=== PATIENT | male | born 1955 | race Caucasian/White ===

== ENCOUNTER 2019-06-30 20:00 | Inpatient (IN) | payer MEDICARE ==
[~2019-06-30] VITALS: Ht 190.5 cm; Wt 121.6 kg
[2019-06-30] MEDS ORDERED: DEPAKOTE ER250 MG ORAL (20:21)
[2019-06-30] MEDS ORDERED: LIPITOR40 MG ORAL (20:21)
[2019-06-30] MEDS ORDERED: ACETAMINOPHEN325 M1 ORAL (20:21)
[2019-06-30] MEDS ORDERED: HALOPERIDOL2 MG/1 ML PO (20:21)
[2019-06-30] MEDS ORDERED: DEPAKOTE500 MG PO (20:21)
[2019-06-30] MEDS ORDERED: PROTONIX20 MG ORAL (20:21)
[2019-06-30] MEDS ORDERED: FUROSEMIDE40 MG ORAL (20:23)
[2019-06-30] MEDS ORDERED: LISINOPRIL20 MG ORAL (20:23)
[2019-06-30] MEDS ORDERED: PRO-STAT LIQUID30 ML ORAL (20:23)
[2019-06-30] MEDS ORDERED: BENZTROPINE ME0.5 MG PO (20:23)
[2019-06-30] MEDS ORDERED: PLAVIX75 MG ORAL (20:23)
[2019-06-30] MEDS ORDERED: DOCUSATE SODIU100 M2 ORAL (20:23)
[2019-06-30 20:30] VITALS: BP 152/98
[2019-06-30 20:37] LABS: EOSINOPHILS % (AUTO) 0.1 % (0.0-3.0); HEMATOCRIT 42.9 % (42.0-52.0); HEMOGLOBIN 14.7 G/DL (14.2-18.0); LYMPHOCYTES % (AUTO) 24.3 % (20.0-45.0); MEAN CORPUSCULAR VOLUME 88 FL (80-99); MONOCYTES % (AUTO) 9.1 % (1.0-10.0); NEUTROPHILS % (AUTO) 64.5 % (45.0-75.0); PLATELET COUNT 158 K/UL (150-450); RED BLOOD COUNT 4.87 M/UL (4.70-6.10); RED CELL DISTRIBUTION WIDTH 12.8 % (11.6-14.8); WHITE BLOOD COUNT 6.4 K/UL (4.8-10.8)
--- NOTE | 2019-06-30 20:42 | Emergency Room Report ---
History of Present Illness General Chief Complaint: General Complaint Source: Patient, Medical Record Present Illness HPI Patient presents from nursing facility with reports of increased weight loss Ongoing for the past several weeks patient himself reports that he has been eating less Has decreased appetite Denies any chest pain or shortness of breath denies any back or flank pain Patient appears morbidly obese And is chronically debilitated Denies any neck pain or photophobia denies any recent trauma Allergies: Coded Allergies: ASPIRIN (Verified Allergy, Unknown, 06/30/19) Patient History Past Medical History: see triage record Reviewed Nursing Documentation: PMH: Agreed; PSxH: Agreed Nursing Documentation-PMH Hx Hypertension: Yes - CELLULITIS RLE, LUE Hx COPD: Yes Hx Seizures: Yes Review of Systems All Other Systems: negative except mentioned in HPI Physical Exam Vital Signs Date Time Temp Pulse Resp B/P (MAP) Pulse Ox O2 Delivery O2 Flow Rate FiO2 06/30/19 20:03 97.3 76 18 152/98 (116) 92 Room Air Sp02 EP Interpretation: reviewed, normal General Appearance: no apparent distress Head: normocephalic, atraumatic Eyes: bilateral eye PERRL, bilateral eye EOMI ENT: dry mucus membranes Neck: supple, thyroid normal Respiratory: lungs clear, no retraction, no accessory muscle use Cardiovascular #1: regular rate, rhythm Gastrointestinal: non tender, soft Musculoskeletal: other - Patient chronically debilitated however able to have equal deputy k 9 bilaterally on the upper extremities Neurologic: alert, oriented x3 Skin: no rash Lymphatic: no adenopathy Medical Decision Making Diagnostic Impression: Primary Impression: Dehydration Additional Impression: Weight loss ER Course Given the patient's history and presentation multiple differentials are in consideration including but not limited to carcinoma, dehydration, obstruction Patient's CT imaging does reveal multiple abnormal findings X-ray shows nonspecific findings EKG is appropriate patient is further hydrated and admitted for further care Labs Test 06/30/19 20:20 06/30/19 22:15 07/01/19 07:25 07/01/19 09:50 White Blood Count 6.4 K/UL (4.8-10.8) 6.5 K/UL (4.8-10.8) Red Blood Count 4.87 M/UL (4.70-6.10) 4.51 M/UL (4.70-6.10) Hemoglobin 14.7 G/DL (14.2-18.0) 13.6 G/DL (14.2-18.0) Hematocrit 42.9 % (42.0-52.0) 41.3 % (42.0-52.0) Mean Corpuscular Volume 88 FL (80-99) 92 FL (80-99) Mean Corpuscular Hemoglobin 30.2 PG (27.0-31.0) 30.2 PG (27.0-31.0) Mean Corpuscular Hemoglobin Concent 34.3 G/DL (32.0-36.0) 32.9 G/DL (32.0-36.0) Red Cell Distribution Width 12.8 % (11.6-14.8) 14.3 % (11.6-14.8) Platelet Count 158 K/UL (150-450) 148 K/UL (150-450) Mean Platelet Volume 7.4 FL (6.5-10.1) 8.3 FL (6.5-10.1) Neutrophils (%) (Auto) 64.5 % (45.0-75.0) 62.7 % (45.0-75.0) Lymphocytes (%) (Auto) 24.3 % (20.0-45.0) 21.2 % (20.0-45.0) Monocytes (%) (Auto) 9.1 % (1.0-10.0) 13.7 % (1.0-10.0) Eosinophils (%) (Auto) 0.1 % (0.0-3.0) 1.4 % (0.0-3.0) Basophils (%) (Auto) 2.0 % (0.0-2.0) 1.1 % (0.0-2.0) Sodium Level 141 MMOL/L (136-145) 140 MMOL/L (136-145) Potassium Level 4.7 MMOL/L (3.5-5.1) 3.9 MMOL/L (3.5-5.1) Chloride Level 104 MMOL/L (98-107) 105 MMOL/L (98-107) Carbon Dioxide Level 35 MMOL/L (21-32) 33 MMOL/L (21-32) Anion Gap 2 mmol/L (5-15) 2 mmol/L (5-15) Blood Urea Nitrogen 17 mg/dL (7-18) 16 mg/dL (7-18) Creatinine 0.8 MG/DL (0.55-1.30) 0.7 MG/DL (0.55-1.30) Estimat Glomerular Filtration Rate > 60 mL/min (>60) > 60 mL/min (>60) Glucose Level 88 MG/DL (74-106) 84 MG/DL (74-106) Calcium Level 8.8 MG/DL (8.5-10.1) 8.7 MG/DL (8.5-10.1) Total Bilirubin 0.5 MG/DL (0.2-1.0) 0.5 MG/DL (0.2-1.0) Aspartate Amino Transf (AST/SGOT) 31 U/L (15-37) 29 U/L (15-37) Alanine Aminotransferase (ALT/SGPT) 28 U/L (12-78) 27 U/L (12-78) Alkaline Phosphatase 63 U/L (46-116) 52 U/L (46-116) Total Creatine Kinase 18 U/L (26-308) Creatine Kinase MB 0.5 NG/ML (0.0-3.6) Creatine Kinase MB Relative Index 2.7 Troponin I 0.008 ng/mL (0.000-0.056) Pro-B-Type Natriuretic Peptide 327 pg/mL (0-125) Total Protein 8.4 G/DL (6.4-8.2) 7.6 G/DL (6.4-8.2) Albumin 2.7 G/DL (3.4-5.0) 2.4 G/DL (3.4-5.0) Globulin 5.7 g/dL 5.2 g/dL Albumin/Globulin Ratio 0.5 (1.0-2.7) 0.5 (1.0-2.7) Lipase 58 U/L (73-393) Urine Color Mar Urine Appearance Clear Urine pH 5 (4.5-8.0) Urine Specific [place] 1.020 (1.005-1.035) Urine Protein Negative (NEGATIVE) Urine Glucose (UA) Negative (NEGATIVE) Urine Ketones Negative (NEGATIVE) Urine Blood Negative (NEGATIVE) Urine Nitrite Negative (NEGATIVE) Urine Bilirubin Negative (NEGATIVE) Urine Ictotest Negative (NEGATIVE) Urine Urobilinogen 4 MG/DL (0.0-1.0) Urine Leukocyte Esterase Negative (NEGATIVE) HIV (1&2) Antibody Rapid Negative (NEGATIVE) EKG Diagnostic Results Rate: normal Rhythm: NSR ST Segments: no acute changes Rhythm Strip Diag. Results EP Interpretation: yes Rate: 88 Rhythm: NSR, no PVC's, no ectopy Chest X-Ray Diagnostic Results Chest X-Ray Diagnostic Results : Chest X-Ray Ordered: Yes # of Views/Limited/Complete: 1 View Indication: Chest Pain EP Interpretation: Yes Interpretation: no consolidation, no effusion, no pneumothorax Impression: No acute disease - Catheters visualized from both neck region Electronically Signed by: Marifer Lyons DO CT/MRI/US Diagnostic Results CT/MRI/US Diagnostic Results : Impression CT abdomen pelvisIMPRESSION: Limited exam without intravenous and oral contrast. Significant streak artifact from left hip prosthesis also limits evaluation through the pelvis. Subtle abnormalities in these regions can be missed. Within these limitations: * Bibasilar airspace opacities which may be related to atelectasis however correlation with clinical findings is recommended to exclude the possibility of consolidation or aspiration. * Prominent colonic stool burden suggesting constipation. * Chilaiditi sign. * Atypical hepatic morphology which may suggest early cirrhotic changes. Correlation with liver function tests and clinical history recommended. No discrete hepatic mass lesion identified however sensitivity is limited on noncontrast exam. Consider follow-up multiphase contrast-enhanced MRI or CT of the liver as clinically indicated. * Extensive superficial venous collaterals in the abdominal wall which may suggest SVC occlusion or stenosis. Correlate clinically. Additional findings as above. This report corresponds with the preliminary report. Last Vital Signs Date Time Temp Pulse Resp B/P (MAP) Pulse Ox O2 Delivery O2 Flow Rate FiO2 06/30/19 20:03 97.3 76 18 152/98 (116) 92 Room Air Status: improved Disposition: ADMITTED INPATIENT Condition: Serious Marifer Lyons DO Jun 30, 2019 20:42
[2019-06-30 20:58] LABS: ANION GAP 2 mmol/L (5-15); BLOOD UREA NITROGEN 17 mg/dL (7-18); CALCIUM 8.8 MG/DL (8.5-10.1); CARBON DIOXIDE 35 MMOL/L (21-32); CHLORIDE 104 MMOL/L (98-107); CREATININE 0.8 MG/DL (0.55-1.30); POTASSIUM 4.7 MMOL/L (3.5-5.1); SODIUM 141 MMOL/L (136-145)
[2019-06-30 21:19] LABS: ALANINE AMINOTRANSFERASE 28 U/L (12-78); ALBUMIN 2.7 G/DL (3.4-5.0); ALBUMIN/GLOBULIN RATIO 0.5 (1.0-2.7); ALKALINE PHOSPHATASE 63 U/L (46-116); ASPARTATE AMINO TRANSFERASE 31 U/L (15-37); BILIRUBIN,TOTAL 0.5 MG/DL (0.2-1.0); CKMB 0.5 NG/ML (0.0-3.6); CREATINE KINASE 18 U/L (26-308)
--- NOTE | 2019-06-30 21:25 | Diagnostic Imaging Report ---
Indication: Abdominal pain, weight loss Technique: Noncontrast CT of the abdomen and pelvis utilizing automated exposure control. Axial, sagittal and coronal reformats presented. CT dose: Total DLP 2589.5 mGycm; CTDI vol 38.7 mGy Comparison: None Findings: Please note that evaluation of the abdominal and pelvic viscera and vascular structures is limited without the use of intravenous and oral contrast. Within these limitations the following observations are made: Dependent bibasilar atelectasis is noted. Correlate clinically to exclude consolidation or aspiration. There is a subpleural pulmonary blebs in the left base. Partially imaged heart appears normal in size. Coronary arterial calcifications partially visualized. No pericardial effusion. There is elevation of the right hemidiaphragm. There is atypical morphology of the liver with possible early cirrhotic changes. There is hypertrophy of the caudate. No discrete mass lesion is appreciated however more sensitive evaluation with multiphase CT or MRI is recommended. The gallbladder is contracted. There are no CT evident gallstones or pericholecystic inflammatory changes. No appreciable biliary ductal dilatation. Noncontrast evaluation of the spleen, adrenal glands unremarkable. There is mild fatty atrophy of the pancreas. This may be related to age however correlate for history of diabetes recommended. No peripancreatic inflammatory changes or fluid collections. No urinary tract stone, hydronephrosis or perinephric stranding. Bladder is grossly unremarkable. Note that there is suboptimal evaluation of the inferior aspect of the bladder and prostate due to significant streak artifact from left hip prosthesis. Subtle pathology in these regions not excluded. No free intraperitoneal air or fluid. There is no evidence of small bowel obstruction. Prominent colonic stool burden and anterior position of portions of the transverse colon anterior to the liver (Chilaiditi sign). There is diastases of the rectus muscles with mild anterior bulging of intra-abdominal fat. The diastases. There is evidence of prior midline abdominal surgery raising question for prior ventral hernia repair. No subcutaneous fluid collection or abscess. There are extensive facial venous collaterals subcutaneous tissues of the abdominal wall and lower chest. This raises question for central venous occlusion or stenosis. There is multilevel discogenic degenerative changes of the spine and generalized osteopenia. No acute fracture is appreciated. Abdominal aorta is normal in caliber with overall mild atherosclerotic calcifications. IMPRESSION: Limited exam without intravenous and oral contrast. Significant streak artifact from left hip prosthesis also limits evaluation through the pelvis. Subtle abnormalities in these regions can be missed. Within these limitations: * Bibasilar airspace opacities which may be related to atelectasis however correlation with clinical findings is recommended to exclude the possibility of consolidation or aspiration. * Prominent colonic stool burden suggesting constipation. * Chilaiditi sign. * Atypical hepatic morphology which may suggest early cirrhotic changes. Correlation with liver function tests and clinical history recommended. No discrete hepatic mass lesion identified however sensitivity is limited on noncontrast exam. Consider follow-up multiphase contrast-enhanced MRI or CT of the liver as clinically indicated. * Extensive superficial venous collaterals in the abdominal wall which may suggest SVC occlusion or stenosis. Correlate clinically. Additional findings as above. This report corresponds with the preliminary report. The CT scanner at [facility] is accredited by the [employer] and the scans are performed using protocols designed to limit radiation exposure to as low as reasonably achievable to attain images of sufficient resolution adequate for diagnostic evaluation.
[2019-06-30 21:59] VITALS: BP 100/54
[2019-06-30 22:49] LABS: APPEARANCE,URINE CLEAR; BILIRUBIN, URINE NEGATIVE (NEGATIVE); COLOR,URINE AMBER; GLUCOSE, URINE (UA) NEGATIVE (NEGATIVE); KETONES,URINE NEGATIVE (NEGATIVE); LEUKOCYTE ESTERASE ,URINE NEGATIVE (NEGATIVE); NITRITE,URINE NEGATIVE (NEGATIVE); PH,URINE 5 (4.5-8.0); PROTEIN,URINE NEGATIVE (NEGATIVE); UROBILINOGEN,URINE 4 MG/DL (0.0-1.0)
[2019-06-30 22:50] VITALS: BP 106/58
[2019-07-01] VITALS: BP 99/57
[2019-07-01] MEDS ORDERED: Docusate 100mg cap ORAL PRN (00:45)
[2019-07-01 04:00] VITALS: BP 94/59
[2019-07-01] MEDS ORDERED: DEPAKOTE250 MG PO (05:17)
[2019-07-01 07:59] LABS: BASOPHILS % (AUTO) 1.1 % (0.0-2.0); EOSINOPHILS % (AUTO) 1.4 % (0.0-3.0); HEMATOCRIT 41.3 % (42.0-52.0); HEMOGLOBIN 13.6 G/DL (14.2-18.0); LYMPHOCYTES % (AUTO) 21.2 % (20.0-45.0); MEAN CORPUSCULAR VOLUME 92 FL (80-99); MONOCYTES % (AUTO) 13.7 % (1.0-10.0); NEUTROPHILS % (AUTO) 62.7 % (45.0-75.0); PLATELET COUNT 148 K/UL (150-450); RED BLOOD COUNT 4.51 M/UL (4.70-6.10); RED CELL DISTRIBUTION WIDTH 14.3 % (11.6-14.8); WHITE BLOOD COUNT 6.5 K/UL (4.8-10.8)
[2019-07-01 08:00] VITALS: BP 98/67
[2019-07-01 08:36] LABS: ALANINE AMINOTRANSFERASE 27 U/L (12-78); ALBUMIN 2.4 G/DL (3.4-5.0); ALBUMIN/GLOBULIN RATIO 0.5 (1.0-2.7); ALKALINE PHOSPHATASE 52 U/L (46-116); ANION GAP 2 mmol/L (5-15); ASPARTATE AMINO TRANSFERASE 29 U/L (15-37); BILIRUBIN,TOTAL 0.5 MG/DL (0.2-1.0); BLOOD UREA NITROGEN 16 mg/dL (7-18); CALCIUM 8.7 MG/DL (8.5-10.1); CARBON DIOXIDE 33 MMOL/L (21-32); CHLORIDE 105 MMOL/L (98-107); CREATININE 0.7 MG/DL (0.55-1.30); POTASSIUM 3.9 MMOL/L (3.5-5.1); SODIUM 140 MMOL/L (136-145)
[2019-07-01] MEDS: Lisinopril 20mg tab ORAL SCH (09:00)
[2019-07-01] MEDS: Benztropine 1mg tab ORAL SCH ×3 (09:25→17:09)
[2019-07-01] MEDS: Haloperidol 1mg tab ORAL SCH ×3 (09:26→17:10)
[2019-07-01] MEDS: Depakote 500mg tab ORAL SCH ×2 (09:26→17:10)
[2019-07-01] MEDS: Furosemide 40mg tab ORAL SCH (09:27)
--- NOTE | 2019-07-01 11:28 | Diagnostic Imaging Report ---
Indication: Chest pain Technique: XRAY Chest 1v Comparison: None Findings: Patient is rotated to the left. There is slight prominence of the upper mediastinal shadow although the mediastinal contours are sharp. This may potentially be artifactual. If there is concern for acute thoracic or mediastinal pathology consider further evaluation with CT of the chest with contrast. There are 2 catheters projecting over the bilateral lower neck and terminating in the region of the upper chest. These may potentially represent ventricular shunt catheters, possibly intra-articular pleural shunt or shunt into the venous system correlation with surgical history is recommended. There I patchy bibasilar airspace opacities which may related to subsegmental atelectasis. There is elevation of the right hemidiaphragm. There is a 7 mm nodular density in the right upper lung. No evidence of pneumothorax. A left humeral prosthesis is noted. There is scoliosis and degenerative changes of the spine. IMPRESSION: * Catheter tubing projects over the bilateral lower neck, terminating in the upper chest. These may be related to ventricular shunts, possibly ventriculopleural or ventriculovenous shunt. Correlation with surgical history recommended. * Slight prominence of the upper mediastinum with sharp borders which is may be related to artifact due to patient rotation. Repeat exam with improved patient positioning can be made. Further evaluation with CT of the chest with contrast can be pursued as clinically indicated. * Aeration of the right hemidiaphragm and patchy bibasilar airspace opacities which may be related to subsegmental atelectasis versus developing infectious infiltrate. * 7 mm nodule in the right upper lung. Salient findings discussed the patient's treating nurse on 4 E, to be conveyed to the primary physician
[2019-07-01 12:00] VITALS: BP 127/78
--- NOTE | 2019-07-01 12:39 | Cardiology Report ---
APPROVED REPORT EKG Measurement Heart [id number] Normal sinus rhythm Right bundle branch block Abnormal ECG
[2019-07-01 16:00] VITALS: BP 131/76
[2019-07-01 20:00] VITALS: BP 129/63
[2019-07-01] MEDS: Atorvastatin 20mg tab ORAL SCH (20:52)
[2019-07-02 00:35] VITALS: BP 107/69
--- NOTE | 2019-07-02 02:45 | History and Physical Report ---
DATE OF ADMISSION: 06/30/2019 HISTORY OF PRESENT ILLNESS: The patient admitted for dehydration, 36-pound weight loss in the past couple of months in the residential, and is admitted for weight loss workup as well and admitted for weakness and dehydration as well. The patient denies nausea, vomiting, or diarrhea. Denies fever or chills. Denies shortness of breath. Denies cough. Denies chills. Denies fever. However, the patient is a relatively poor historian, cannot rely upon his history. PAST MEDICAL HISTORY: Organic brain syndrome, head trauma, hyperlipidemia, mood disorder, constipation, psychosis, gastroesophageal reflux disease, hernia. PAST SURGICAL HISTORY: Hernia repair. SOCIAL HISTORY: History of smoking. Denies history of alcohol or illicit drugs. Comes from a residential. ALLERGIES: To aspirin. MEDICATIONS: Lipitor, Cogentin, Plavix, Depakote, Colace, Lasix, , lisinopril, Protonix. REVIEW OF SYSTEMS: HEENT: Denies headaches. RESPIRATORY: Denies shortness of breath. Denies cough. CARDIOVASCULAR: Denies chest pain. GI: Denies nausea, vomiting, or diarrhea. EXTREMITIES: Denies pain. Does have weakness. CENTRAL NERVOUS SYSTEM: Denies change in vision or speech pattern. Feels very weak. PHYSICAL EXAMINATION: VITAL SIGNS: Temperature is 98, pulse is 80, blood pressure 98/67. HEENT: PERRLA. NECK: Supple. No lymphadenopathy. CHEST: Clear to auscultation. CARDIOVASCULAR: Regular rate and rhythm. No murmurs or extra sounds. GASTROINTESTINAL: Soft, nondistended, nontender. Positive bowel sounds. EXTREMITIES: 1+ edema. Reflexes on both sides. Moves the extremities. Sensory intact to light touch. LABORATORY DATA: WBC of 6.4, hemoglobin 14.7, and platelets 158. Sodium 141, potassium 4.7, BUN of 17, creatinine , and glucose of 88. ASSESSMENT AND PLAN: Weight loss workup, also dehydration and weakness. I have asked Dr. Gordillo, Dr. Cody Mcneil, and Dr. Alarcon to see the patient to rule out depression as well as for weight loss workup as well as for dehydration treatment. Marifer Rodriguez M.D. DR: GUILHERME JOB#: [id number] CC:
[2019-07-02 04:00] VITALS: BP 132/70
--- NOTE | 2019-07-02 06:27 | Consultation ---
History of Present Illness General Chief Complaint: General Complaint Present Illness Allergies: Coded Allergies: ASPIRIN (Verified Allergy, Unknown, 06/30/19) Medication History Scheduled Amino Acids/Protein Hydrolys (Pro-Stat Liquid), 30 ML ORAL TWICE A DAY, ( Reported) Atorvastatin Calcium* (Lipitor*), 40 MG ORAL BEDTIME, (Reported) Benztropine Mesylate* (Cogentin*), 1 MG PO TID, (Reported) Clopidogrel Bisulfate* (Plavix*), 75 MG ORAL DAILY, (Reported) Divalproex Sodium (Depakote), 500 MG PO BID, (Reported) Divalproex Sodium* (Depakote*), 250 MG PO DAILY, (Reported) Docusate Sodium (Docusate Sodium), 100 MG ORAL TWICE A DAY, (Reported) Furosemide* (Lasix*), 40 MG ORAL DAILY, (Reported) Haloperidol Lactate (Haloperidol Lactate), 2 MG PO TID, (Reported) Lisinopril (Lisinopril*), 20 MG ORAL DAILY, (Reported) Pantoprazole Sodium (Protonix), 40 MG ORAL DAILY, (Reported) Scheduled PRN Acetaminophen* (Acetaminophen 325MG Tablet*), 650 MG ORAL Q4H PRN for For Pain, (Reported) Patient History Healthcare decision maker Resuscitation status Full Code Advanced Directive on File Physical Exam Last 24 Hour Vital Signs Date Time Temp Pulse Resp B/P (MAP) Pulse Ox O2 Delivery O2 Flow Rate FiO2 07/02/19 04:00 98.0 76 20 132/70 (90) 93 07/02/19 00:35 97.5 69 18 107/69 (82) 90 07/01/19 20:22 Room Air 07/01/19 20:00 97.8 18 129/63 (85) 94 07/01/19 16:00 98.0 66 18 131/76 (94) 93 07/01/19 12:00 97.2 68 20 127/78 (94) 97 07/01/19 09:00 98/67 07/01/19 09:00 Room Air 07/01/19 08:00 98.0 80 19 98/67 (77) 98 Intake and Output 07/01/19 07/02/19 19:00 07:00 Intake Total 860 ml 860 ml Balance 860 ml 860 ml Intake Oral 860 ml 860 ml # Voids 8 2 Laboratory Tests Test 07/01/19 07:25 07/01/19 09:50 White Blood Count 6.5 K/UL (4.8-10.8) Red Blood Count 4.51 M/UL (4.70-6.10) L Hemoglobin 13.6 G/DL (14.2-18.0) L Hematocrit 41.3 % (42.0-52.0) L Mean Corpuscular Volume 92 FL (80-99) Mean Corpuscular Hemoglobin 30.2 PG (27.0-31.0) Mean Corpuscular Hemoglobin Concent 32.9 G/DL (32.0-36.0) Red Cell Distribution Width 14.3 % (11.6-14.8) Platelet Count 148 K/UL (150-450) L Mean Platelet Volume 8.3 FL (6.5-10.1) Neutrophils (%) (Auto) 62.7 % (45.0-75.0) Lymphocytes (%) (Auto) 21.2 % (20.0-45.0) Monocytes (%) (Auto) 13.7 % (1.0-10.0) H Eosinophils (%) (Auto) 1.4 % (0.0-3.0) Basophils (%) (Auto) 1.1 % (0.0-2.0) Sodium Level 140 MMOL/L (136-145) Potassium Level 3.9 MMOL/L (3.5-5.1) Chloride Level 105 MMOL/L (98-107) Carbon Dioxide Level 33 MMOL/L (21-32) H Anion Gap 2 mmol/L (5-15) L Blood Urea Nitrogen 16 mg/dL (7-18) Creatinine 0.7 MG/DL (0.55-1.30) Estimat Glomerular Filtration Rate > 60 mL/min (>60) Glucose Level 84 MG/DL (74-106) Calcium Level 8.7 MG/DL (8.5-10.1) Total Bilirubin 0.5 MG/DL (0.2-1.0) Aspartate Amino Transf (AST/SGOT) 29 U/L (15-37) Alanine Aminotransferase (ALT/SGPT) 27 U/L (12-78) Alkaline Phosphatase 52 U/L (46-116) Total Protein 7.6 G/DL (6.4-8.2) Albumin 2.4 G/DL (3.4-5.0) L Globulin 5.2 g/dL Albumin/Globulin Ratio 0.5 (1.0-2.7) L HIV (1&2) Antibody Rapid Negative (NEGATIVE) Carcinoembryonic Antigen Pending CA 19-9 Antigen Pending Hepatitis A IgM Antibody Negative (Negative) Hepatitis B Surface Antigen Negative (Negative) Hepatitis B Core IgM Antibody Negative (Negative) Hepatitis C Antibody >11.0 s/co ratio Height (Feet): 6 Height (Inches): 3.00 Weight (Pounds): 268 Medications Current Medications Medications (Trade) Dose Ordered Sig/Deb Route PRN Reason Start Time Stop Time Status Last Admin Dose Admin Acetaminophen (Tylenol) 650 mg Q4H PRN ORAL Mild Pain/Temp > 100.5 07/01/19 00:45 07/31/19 00:44 Atorvastatin Calcium (Lipitor) 40 mg BEDTIME ORAL 07/01/19 21:00 07/31/19 20:59 07/01/19 20:52 Benztropine Mesylate (Cogentin) 1 mg TID ORAL 07/01/19 09:00 07/31/19 08:59 07/01/19 17:09 Clopidogrel Bisulfate (Plavix) 75 mg DAILY ORAL 07/01/19 09:00 07/31/19 08:59 07/01/19 09:26 Divalproex Sodium (Depakote) 250 mg DAILY@1300 ORAL 07/01/19 13:00 07/31/19 12:59 07/01/19 13:20 Divalproex Sodium (Depakote) 500 mg BID ORAL 07/01/19 09:00 07/31/19 08:59 07/01/19 17:10 Docusate Sodium (Colace) 100 mg TWICE A DAY PRN ORAL Constipation 07/01/19 00:45 07/31/19 00:44 Furosemide (Lasix) 40 mg DAILY ORAL 07/01/19 09:00 07/31/19 08:59 07/01/19 09:27 Haloperidol (Haldol) 2 mg TID ORAL 07/01/19 09:00 07/31/19 08:59 07/01/19 17:10 Lisinopril (Prinivil) 20 mg DAILY ORAL 07/01/19 09:00 07/31/19 08:59 Pantoprazole (Protonix) 40 mg DAILY@0630 ORAL 07/01/19 06:30 07/31/19 06:29 07/02/19 05:23 Assessment/Plan Assessment/Plan: Hematology Consultation Source: Patient, Medical Record RFC: Rapid weight loss, FTT, low platelets DOS: 07/02/19 ID [id number] old male with copd, siezures, htn, presents from nursing facility with reports of increased weight loss. Ongoing for the past several weeks patient himself reports that he has been eating less, Has decreased appetite, Denies any chest pain or shortness of breath denies any back or flank pain, Patient appears morbidly obese, And is chronically debilitated, discussed his care, he has issues with memory, unable to tell me his history, surgery, prior meds, etc. I ordered labs and will review w/u. Denies any neck pain or photophobia denies any recent trauma Allergies: ASPIRIN (Verified Allergy, Unknown, 06/30/19) Past Medical History: see triage record Reviewed Nursing Documentation: PMH: Agreed; PSxH: Agreed Nursing Documentation - PMHx Hx Hypertension: Yes - CELLULITIS RLE, LUE Hx COPD: Yes Hx Seizures: Yes Review of Systems: negative except mentioned in HPI PE Vitals: reviewed, normal General: no apparent distress Neck: supple, thyroid normal Resp: lungs clear, no retraction, no accessory muscle use CV: regular rate, rhythm GI: non tender, soft MSK: Patient chronically debilitated however able to have equal director of public safety bilaterally on the upper extremities Neurologic: alert, oriented x3 Skin: no rash Lymphatic: no adenopathy Labs: noted Imaging: ntoed Assessment and Recs: # Thrombocytopenia -- labs and imaging, likely early cirrhosis as well as HEPATITIS C++ --> obtain ct of the a/p and results noted --> afp tumor markers, along with cea, ca 19.9 --> COAGS ordered --> treat underlying hepatitis C once discharged # Failure to thrive recent weight loss --> imaging noted and no significant mass/metastatic disease/infectious process noted --> calorie counts, ot/pt # Dehydration --> ivf have been started # Weight loss # Atypical hepatic morphology which may suggest early cirrhotic changes. # Extensive superficial venous collaterals in the abdominal wall which may suggest SVC occlusion or stenosis # Azotemia as per renal # Psych disorder as per Duy CARPENTER Rn and appreciate consultation. Cody Mcneil MD Jul 02, 2019 06:27
[2019-07-02 07:38] LABS: BASOPHILS % (AUTO) 1.1 % (0.0-2.0); EOSINOPHILS % (AUTO) 1.9 % (0.0-3.0); HEMATOCRIT 41.4 % (42.0-52.0); HEMOGLOBIN 13.6 G/DL (14.2-18.0); LYMPHOCYTES % (AUTO) 25.8 % (20.0-45.0); MEAN CORPUSCULAR VOLUME 92 FL (80-99); NEUTROPHILS % (AUTO) 56.2 % (45.0-75.0); PLATELET COUNT 140 K/UL (150-450); RED CELL DISTRIBUTION WIDTH 14.1 % (11.6-14.8); WHITE BLOOD COUNT 5.7 K/UL (4.8-10.8)
[2019-07-02 08:00] VITALS: BP 138/79
[2019-07-02] MEDS: Lisinopril 20mg tab ORAL SCH (08:55)
[2019-07-02] MEDS: Depakote 500mg tab ORAL SCH ×2 (08:55→17:19)
[2019-07-02] MEDS: Benztropine 1mg tab ORAL SCH ×3 (08:56→17:19)
[2019-07-02] MEDS: Furosemide 40mg tab ORAL SCH (08:57)
[2019-07-02] MEDS: Haloperidol 1mg tab ORAL SCH ×3 (08:57→17:20)
[2019-07-02 09:03] LABS: INR 1.1 (0.9-1.1)
[2019-07-02 12:00] VITALS: BP 119/87
--- NOTE | 2019-07-02 14:53 | Consultation ---
History of Present Illness General Date patient seen: Jul 02, 2019 Reason for Hospitalization: General Complaint Present Illness HPI 63y old male with copd, siezures, htn, presents from nursing facility with reports of increased weight loss. Ongoing for the past several weeks patient himself reports that he has been eating less, Has decreased appetite, Denies any chest pain or shortness of breath denies any back or flank pain, Patient appears morbidly obese, And is chronically debilitated, discussed his care, he has issues with memory, unable to tell me his history, surgery, prior meds, etc. Admitted for care and management. labs abnormal, deconditioned, multiple decubitus. surgery called to evaluated and assist with care. patient seen chart reviewed, patient examined Allergies: Coded Allergies: ASPIRIN (Verified Allergy, Unknown, 06/30/19) Medication History Scheduled Amino Acids/Protein Hydrolys (Pro-Stat Liquid), 30 ML ORAL TWICE A DAY, ( Reported) Atorvastatin Calcium* (Lipitor*), 40 MG ORAL BEDTIME, (Reported) Benztropine Mesylate* (Cogentin*), 1 MG PO TID, (Reported) Clopidogrel Bisulfate* (Plavix*), 75 MG ORAL DAILY, (Reported) Divalproex Sodium (Depakote), 500 MG PO BID, (Reported) Divalproex Sodium* (Depakote*), 250 MG PO DAILY, (Reported) Docusate Sodium (Docusate Sodium), 100 MG ORAL TWICE A DAY, (Reported) Furosemide* (Lasix*), 40 MG ORAL DAILY, (Reported) Haloperidol Lactate (Haloperidol Lactate), 2 MG PO TID, (Reported) Lisinopril (Lisinopril*), 20 MG ORAL DAILY, (Reported) Pantoprazole Sodium (Protonix), 40 MG ORAL DAILY, (Reported) Scheduled PRN Acetaminophen* (Acetaminophen 325MG Tablet*), 650 MG ORAL Q4H PRN for For Pain, (Reported) Patient History Limited by: age, medical condition History Provided By: Medical Record, PMD Healthcare decision maker Resuscitation status Full Code Advanced Directive on File Past Medical/Surgical History Past Medical/Surgical History: (1) Weight loss (2) Dehydration Review of Systems Review of Symptoms General ROS: no weight loss or fever Psychological ROS: no depression or mood changes, no memory loss Ophthalmic ROS: no visual changes or eye irritation ENT ROS: no nasal congestion, hearing loss, dizziness Allergy and Immunology ROS: no allergic symptoms or urticaria Hematological and Lymphatic ROS: no swollen glands, unusual bleeding or bruising Endocrine ROS: no polyuria, polydipsia, weight changes, temperature intolerance Respiratory ROS: no cough, shortness of breath, or wheezing Cardiovascular ROS: no chest pain or dyspnea on exertion Gastrointestinal ROS: denies abdominal pain, bright red blood in stool. Musculoskeletal ROS: no myalgias or arthralgias Neurological ROS: no TIA or stroke symptoms Dermatological ROS: no new or changing skin lesions, rashes or pruritis limited given age and mental status Physical Exam Physical Exam General appearance: alert, cooperative, no distress, appears stated age Head: Normocephalic, without obvious abnormality, atraumatic Eyes: conjunctivae/corneas clear. PERRL, EOM's intact. Fundi benign Throat: Lips, mucosa, and tongue normal. Teeth and gums normal Neck: supple, symmetrical, trachea midline, no adenopathy, thyroid: not enlarged, symmetric, no tenderness/mass/nodules, no carotid bruit and no JVD Lungs: clear to auscultation bilaterally Heart: regular rate and rhythm, S1, S2 normal, no murmur, click, rub or gallop Abdomen: soft, non-tender. Bowel sounds normal. No masses, no organomegaly Extremities: extremities normal, atraumatic, no cyanosis or edema Pulses: 2+ and symmetric Skin: Skin color, texture, turgor normal. No rashes or lesions Neurologic: Grossly normal Last 24 Hour Vital Signs Date Time Temp Pulse Resp B/P (MAP) Pulse Ox O2 Delivery O2 Flow Rate FiO2 07/02/19 12:00 97.5 79 18 119/87 (98) 95 07/02/19 09:00 Room Air 07/02/19 08:55 138/79 07/02/19 08:00 96.4 77 19 138/79 (98) 98 07/02/19 04:00 98.0 76 20 132/70 (90) 93 07/02/19 00:35 97.5 69 18 107/69 (82) 90 07/01/19 20:22 Room Air 07/01/19 20:00 97.8 18 129/63 (85) 94 07/01/19 16:00 98.0 66 18 131/76 (94) 93 Intake and Output 07/01/19 07/02/19 18:59 06:59 Intake Total 860 ml 860 ml Balance 860 ml 860 ml Intake Oral 860 ml 860 ml # Voids 8 2 Laboratory Tests Test 07/02/19 06:10 07/02/19 08:35 White Blood Count 5.7 K/UL (4.8-10.8) Red Blood Count 4.50 M/UL (4.70-6.10) L Hemoglobin 13.6 G/DL (14.2-18.0) L Hematocrit 41.4 % (42.0-52.0) L Mean Corpuscular Volume 92 FL (80-99) Mean Corpuscular Hemoglobin 30.2 PG (27.0-31.0) Mean Corpuscular Hemoglobin Concent 32.8 G/DL (32.0-36.0) Red Cell Distribution Width 14.1 % (11.6-14.8) Platelet Count 140 K/UL (150-450) L Mean Platelet Volume 9.0 FL (6.5-10.1) Neutrophils (%) (Auto) 56.2 % (45.0-75.0) Lymphocytes (%) (Auto) 25.8 % (20.0-45.0) Monocytes (%) (Auto) 15.0 % (1.0-10.0) H Eosinophils (%) (Auto) 1.9 % (0.0-3.0) Basophils (%) (Auto) 1.1 % (0.0-2.0) Alpha Fetoprotein Pending Prothrombin Time 11.4 SEC (9.30-11.50) Prothromb Time International Ratio 1.1 (0.9-1.1) Height (Feet): 6 Height (Inches): 3.00 Weight (Pounds): 268 Medications Current Medications Medications (Trade) Dose Ordered Sig/Deb Route PRN Reason Start Time Stop Time Status Last Admin Dose Admin Acetaminophen (Tylenol) 650 mg Q4H PRN ORAL Mild Pain/Temp > 100.5 07/01/19 00:45 07/31/19 00:44 Atorvastatin Calcium (Lipitor) 40 mg BEDTIME ORAL 07/01/19 21:00 07/31/19 20:59 07/01/19 20:52 Benztropine Mesylate (Cogentin) 1 mg TID ORAL 07/01/19 09:00 07/31/19 08:59 07/02/19 13:17 Clopidogrel Bisulfate (Plavix) 75 mg DAILY ORAL 07/01/19 09:00 07/31/19 08:59 07/02/19 08:57 Divalproex Sodium (Depakote) 250 mg DAILY@1300 ORAL 07/01/19 13:00 07/31/19 12:59 07/02/19 13:18 Divalproex Sodium (Depakote) 500 mg BID ORAL 07/01/19 09:00 07/31/19 08:59 07/02/19 08:55 Docusate Sodium (Colace) 100 mg TWICE A DAY PRN ORAL Constipation 07/01/19 00:45 07/31/19 00:44 Furosemide (Lasix) 40 mg DAILY ORAL 07/01/19 09:00 07/31/19 08:59 07/02/19 08:57 Haloperidol (Haldol) 2 mg TID ORAL 07/01/19 09:00 07/31/19 08:59 07/02/19 13:18 Lisinopril (Prinivil) 20 mg DAILY ORAL 07/01/19 09:00 07/31/19 08:59 07/02/19 08:55 Pantoprazole (Protonix) 40 mg DAILY@0630 ORAL 07/01/19 06:30 07/31/19 06:29 07/02/19 05:23 Assessment/Plan Problem List: (1) Weight loss Assessment & Plan: DAILY ESTIMATED NEEDS: Needs based on Pulmonary, obese, wound 97kg adj 20-25 kcals/kg 1826-0217 total kcals 1.25-1.5 g protein/kg 121-146 g total protein Fluid per MD, on lasix NUTRITION DIAGNOSIS: Unintentional weight loss r/t etiology unknown as evidenced by pt presents w/ 39# wt loss x1 month, 12-13% wt change, severe. CURRENT DIET:Regular PO DIET RECOMMENDATIONS: Low Na diet (texture per RFID STRATEGIST or as tolerated) ADDITIONAL RECOMMENDATIONS: 1) Obtain weekly CALIBRATED weights as pt adm w/ 39# wt loss x1 mo 2) Closely monitor po intake Rec to Add SNACK in b.w meals Will monitor po intake, need for Ensure 3) On lasix, monitor lytes daily 4) F/up w/ WC eval: rec to add JOHNNA BID ICD Codes: R63.4 - Abnormal weight loss SNOMED: 85019315, [id number] (2) Decubitus skin ulcer Assessment & Plan: Pt presented on admission with full thickness stage 3 wound with punched -out appearance L buttock(L)0.6cm x (W)0.5cm x (D)0.3cm. Periwound is erythematous and indurated. NO exudate noted. Pt verbalized area is tender when minimally palpated. Scrotum, Sacral area and R buttocks without erythema or evidence of skin breakdown. Both heels are firm and blanchable. Tx.Plan: Cleanse wound L buttocks with Saline. Apply Therahoney. Apply Moisture Barrier periwound. Cover with Optifoam Drsg every 3 days and prn. Apply Cavilon SKin Barrier to both heels. Cover each heel with Optifoam drsg. Change every 7 days and prn. Apply Moisture Barrier to Scrotum, Sacrum and R buttocks with each incontinence care. Reposition at least every 2 hours or as tolerated. Off-load heels with pillow. ICD Codes: L89.90 - Pressure ulcer of unspecified site, unspecified stage SNOMED: 773139650 Marco Antonio Burns Jul 02, 2019 14:53
[2019-07-02 16:00] VITALS: BP 111/73
[2019-07-02 20:00] VITALS: BP 129/70
[2019-07-02] MEDS: Atorvastatin 20mg tab ORAL SCH (20:23)
--- NOTE | 2019-07-02 23:45 | Consultation ---
DATE OF CONSULTATION: 07/02/2019 CONSULTING PHYSICIAN: Thom Gordillo M.D. REFERRING PHYSICIAN: Marifer Rodriguez M.D. HISTORY OF PRESENT ILLNESS: This is a 63-year-old male with a history of multiple medical issues including head trauma, hyperlipidemia, constipation, psychotic disorder, and GERD who has been admitted to the hospital with weight loss, failure to thrive, and dehydration. The patient has not been eating, presented with decreased appetite. The patient is unable to remain engaged and answer the questions appropriately. PAST PSYCHIATRIC HISTORY: Dementia, depression, and anxiety. PAST MEDICAL HISTORY: Hyperlipidemia, constipation, psychosis, GERD. ALLERGIES: Aspirin. SUBSTANCE ABUSE HISTORY: No known history of illicit drug use or alcohol. MENTAL STATUS EXAMINATION: The patient is alert and oriented times self, place, did not know the date. Poor insight into the situation. Mood is depressed. Affect is constricted, congruent with mood. Thought process is concrete. Thought content, no suicidal or homicidal ideation. Cognition is impaired. Insight and judgment is impaired. ASSESSMENT: [place] I Dementia with behavioral disturbance. Mood disorder by history. [place] II Deferred. [place] III Failure to thrive. [place] IV Low. [place] V 25. PLAN: 1. We will decrease the dose of Depakote. 2. Start the patient on Remeron 15 mg at bedtime. 3. Encouraged the patient to eat. 4. Provide the patient with reality orientation and supportive therapy. Thom Gordillo M.D. DR: GRAY JOB#: [id number] CC:
[2019-07-03] VITALS: BP 120/66
[2019-07-03 04:00] VITALS: BP 132/77
[2019-07-03 07:10] LABS: BASOPHILS % (AUTO) 1.1 % (0.0-2.0); EOSINOPHILS % (AUTO) 0.1 % (0.0-3.0); HEMATOCRIT 40.6 % (42.0-52.0); HEMOGLOBIN 13.5 G/DL (14.2-18.0); LYMPHOCYTES % (AUTO) 23.2 % (20.0-45.0); MEAN CORPUSCULAR VOLUME 92 FL (80-99); NEUTROPHILS % (AUTO) 61.6 % (45.0-75.0); PLATELET COUNT 134 K/UL (150-450); RED BLOOD COUNT 4.42 M/UL (4.70-6.10); RED CELL DISTRIBUTION WIDTH 13.7 % (11.6-14.8); WHITE BLOOD COUNT 5.5 K/UL (4.8-10.8)
[2019-07-03 07:11] LABS: INR 1.1 (0.9-1.1)
[2019-07-03 07:40] LABS: ALANINE AMINOTRANSFERASE 27 U/L (12-78); ALBUMIN 2.3 G/DL (3.4-5.0); ALBUMIN/GLOBULIN RATIO 0.5 (1.0-2.7); ALKALINE PHOSPHATASE 47 U/L (46-116); AMYLASE 32 U/L (25-115); ANION GAP 4 mmol/L (5-15); ASPARTATE AMINO TRANSFERASE 30 U/L (15-37); BILIRUBIN,TOTAL 0.4 MG/DL (0.2-1.0); BLOOD UREA NITROGEN 12 mg/dL (7-18); CALCIUM 8.6 MG/DL (8.5-10.1); CARBON DIOXIDE 33 MMOL/L (21-32); CHLORIDE 105 MMOL/L (98-107); CREATININE 0.6 MG/DL (0.55-1.30); SODIUM 141 MMOL/L (136-145)
[2019-07-03 08:00] VITALS: BP 136/67
[2019-07-03] MEDS: Benztropine 1mg tab ORAL SCH ×3 (09:17→17:32)
[2019-07-03] MEDS: Depakote 500mg tab ORAL SCH ×2 (09:17→17:32)
[2019-07-03] MEDS: Lisinopril 20mg tab ORAL SCH (09:18)
[2019-07-03] MEDS: Furosemide 40mg tab ORAL SCH (09:19)
[2019-07-03 12:00] VITALS: BP 116/67
--- NOTE | 2019-07-03 14:25 | Diagnostic Imaging Report ---
EXAM: US Duplex Bilateral Lower Extremity Veins CLINICAL HISTORY: DVT TECHNIQUE: Real-time duplex ultrasound scan of the bilateral lower extremity veins integrating B-mode two-dimensional vascular structure, Doppler spectral analysis, color flow Doppler imaging and compression. COMPARISON: No relevant prior studies available. FINDINGS: Right deep veins: Unremarkable. No DVT in the right common femoral, femoral, proximal deep femoral or popliteal veins. The veins demonstrate normal color flow, are normally compressible, with normal phasic flow and/or augmentation response. Right superficial veins: Unremarkable. No thrombus in the visualized right great saphenous vein. Left deep veins: Unremarkable. No DVT in the left common femoral, femoral, proximal deep femoral or popliteal veins. The veins demonstrate normal color flow, are normally compressible, with normal phasic flow and/or augmentation response. Left superficial veins: Unremarkable. No thrombus in the visualized left great saphenous vein. Soft tissues: No acute findings. IMPRESSION: No DVT demonstrated.
--- NOTE | 2019-07-03 14:27 | Surgery Progress Note ---
Surgery Progress Note Subjective Additional Comments no acute events comfortable tolerating diet Objective Last 24 Hour Vital Signs Date Time Temp Pulse Resp B/P (MAP) Pulse Ox O2 Delivery O2 Flow Rate FiO2 07/03/19 12:00 97.2 63 18 116/67 (83) 93 07/03/19 09:18 136/67 07/03/19 09:00 Room Air 07/03/19 08:00 96.8 64 18 136/67 (90) 94 07/03/19 04:00 97.9 66 20 132/77 (95) 97 07/03/19 00:00 97.2 68 20 120/66 (84) 96 07/02/19 21:00 Room Air 07/02/19 20:00 96.2 69 21 129/70 (89) 97 07/02/19 16:00 97.6 69 19 111/73 (86) 98 I&O Intake and Output 07/02/19 07/03/19 19:00 07:00 Intake Total 800 ml Balance 800 ml Intake Oral 800 ml # Voids 4 # Bowel Movements 1 Dressing: other Wound: other Drains: other Cardiovascular: RSR Respiratory: decreased breath sounds Abdomen: soft, present bowel sounds, non-distended Extremities: no cyanosis, other Laboratory Tests Test 07/03/19 06:05 White Blood Count 5.5 K/UL (4.8-10.8) Red Blood Count 4.42 M/UL (4.70-6.10) L Hemoglobin 13.5 G/DL (14.2-18.0) L Hematocrit 40.6 % (42.0-52.0) L Mean Corpuscular Volume 92 FL (80-99) Mean Corpuscular Hemoglobin 30.4 PG (27.0-31.0) Mean Corpuscular Hemoglobin Concent 33.2 G/DL (32.0-36.0) Red Cell Distribution Width 13.7 % (11.6-14.8) Platelet Count 134 K/UL (150-450) L Mean Platelet Volume 8.1 FL (6.5-10.1) Neutrophils (%) (Auto) 61.6 % (45.0-75.0) Lymphocytes (%) (Auto) 23.2 % (20.0-45.0) Monocytes (%) (Auto) 14.0 % (1.0-10.0) H Eosinophils (%) (Auto) 0.1 % (0.0-3.0) Basophils (%) (Auto) 1.1 % (0.0-2.0) Erythrocyte Sedimentation Rate 32 MM/HR (0-20) H Prothrombin Time 11.9 SEC (9.30-11.50) H Prothromb Time International Ratio 1.1 (0.9-1.1) Activated Partial Thromboplast Time 31 SEC (23-33) Sodium Level 141 MMOL/L (136-145) Potassium Level 4.0 MMOL/L (3.5-5.1) Chloride Level 105 MMOL/L (98-107) Carbon Dioxide Level 33 MMOL/L (21-32) H Anion Gap 4 mmol/L (5-15) L Blood Urea Nitrogen 12 mg/dL (7-18) Creatinine 0.6 MG/DL (0.55-1.30) Estimat Glomerular Filtration Rate > 60 mL/min (>60) Glucose Level 76 MG/DL (74-106) Calcium Level 8.6 MG/DL (8.5-10.1) Total Bilirubin 0.4 MG/DL (0.2-1.0) Aspartate Amino Transf (AST/SGOT) 30 U/L (15-37) Alanine Aminotransferase (ALT/SGPT) 27 U/L (12-78) Alkaline Phosphatase 47 U/L (46-116) C-Reactive Protein, Quantitative 1.1 mg/dL (0.00-0.90) H Total Protein 7.4 G/DL (6.4-8.2) Albumin 2.3 G/DL (3.4-5.0) L Globulin 5.1 g/dL Albumin/Globulin Ratio 0.5 (1.0-2.7) L Amylase Level 32 U/L (25-115) Lipase 51 U/L (73-393) L Plan Problems: (1) Weight loss Assessment & Plan: DAILY ESTIMATED NEEDS: Needs based on Pulmonary, obese, wound 97kg adj 20-25 kcals/kg 4548-8415 total kcals 1.25-1.5 g protein/kg 121-146 g total protein Fluid per MD, on lasix NUTRITION DIAGNOSIS: Unintentional weight loss r/t etiology unknown as evidenced by pt presents w/ 39# wt loss x1 month, 12-13% wt change, severe. CURRENT DIET:Regular PO DIET RECOMMENDATIONS: Low Na diet (texture per SHERIFFS OFFICER or as tolerated) ADDITIONAL RECOMMENDATIONS: 1) Obtain weekly CALIBRATED weights as pt adm w/ 39# wt loss x1 mo 2) Closely monitor po intake Rec to Add SNACK in b.w meals Will monitor po intake, need for Ensure 3) On lasix, monitor lytes daily 4) F/up w/ WC eval: rec to add JOHNNA BID (2) Decubitus skin ulcer Assessment & Plan: Pt presented on admission with full thickness stage 3 wound with punched -out appearance L buttock(L)0.6cm x (W)0.5cm x (D)0.3cm. Periwound is erythematous and indurated. NO exudate noted. Pt verbalized area is tender when minimally palpated. Scrotum, Sacral area and R buttocks without erythema or evidence of skin breakdown. Both heels are firm and blanchable. Tx.Plan: Cleanse wound L buttocks with Saline. Apply Therahoney. Apply Moisture Barrier periwound. Cover with Optifoam Drsg every 3 days and prn. Apply Cavilon SKin Barrier to both heels. Cover each heel with Optifoam drsg. Change every 7 days and prn. Apply Moisture Barrier to Scrotum, Sacrum and R buttocks with each incontinence care. Reposition at least every 2 hours or as tolerated. Off-load heels with pillow. Marco Antonio Burns Jul 03, 2019 14:27
--- NOTE | 2019-07-03 14:54 | Pulmonology Progress Note ---
Assessment/Plan Assessment/Plan Pulmonary Consultation HPI Patient admitted from nursing facility with weight loss, decreased appetite for a few weeks Denies any chest pain or shortness of breath denies any back or flank pain Denies any neck pain or photophobia denies any recent trauma Allergies: ASPIRIN Past Medical History: Organic Brain Syndrome, Seizures, Hypertension, Chronic Obstructive Pulmonary Disease, Left Upper Lobe Pulmonary Nodule, Seizures, Pressure wounds, UE Cellulitis, Hepatitis C All Other Systems: negative except mentioned in HPI Physical Exam Vital Signs Noted General Appearance: Patient appears morbidly obese, and is chronically debilitated, no apparent distress Head: normocephalic, atraumatic Eyes: bilateral eye PERRL, bilateral eye EOMI ENT: moist mm Neck: supple, thyroid normal Respiratory: lungs clear, no retraction, no accessory muscle use Cardiovascular: regular rate, HS1, HS2 RRR, rhythm Gastrointestinal: non tender, soft Musculoskeletal: other - Patient chronically debilitated however able to have equal field property loss specialist bilaterally on the upper extremities Neurologic: alert, oriented x3 Skin: no rash Lymphatic: no adenopathy Impression: Dehydration on admission, improved Weight loss Chronic Obstructive Pulmonary Disease Left Upper Lobe Pulmonary Nodule Basal atelectasis Organic Brain Syndrome Seizures Hypertension Pressure woundsPrevious UE Cellulitis Hepatitis C Plan - O2 PRN - HHN - LE dupplex negative for DVT - PPX - Monitor labs - CT Chest Labs Test 06/30/19 20:20 06/30/19 22:15 07/01/19 07:25 07/01/19 09:50 White Blood Count 6.4 K/UL (4.8-10.8) 6.5 K/UL (4.8-10.8) Red Blood Count 4.87 M/UL (4.70-6.10) 4.51 M/UL (4.70-6.10) Hemoglobin 14.7 G/DL (14.2-18.0) 13.6 G/DL (14.2-18.0) Hematocrit 42.9 % (42.0-52.0) 41.3 % (42.0-52.0) Mean Corpuscular Volume 88 FL (80-99) 92 FL (80-99) Mean Corpuscular Hemoglobin 30.2 PG (27.0-31.0) 30.2 PG (27.0-31.0) Mean Corpuscular Hemoglobin Concent 34.3 G/DL (32.0-36.0) 32.9 G/DL (32.0-36.0) Red Cell Distribution Width 12.8 % (11.6-14.8) 14.3 % (11.6-14.8) Platelet Count 158 K/UL (150-450) 148 K/UL (150-450) Mean Platelet Volume 7.4 FL (6.5-10.1) 8.3 FL (6.5-10.1) Neutrophils (%) (Auto) 64.5 % (45.0-75.0) 62.7 % (45.0-75.0) Lymphocytes (%) (Auto) 24.3 % (20.0-45.0) 21.2 % (20.0-45.0) Monocytes (%) (Auto) 9.1 % (1.0-10.0) 13.7 % (1.0-10.0) Eosinophils (%) (Auto) 0.1 % (0.0-3.0) 1.4 % (0.0-3.0) Basophils (%) (Auto) 2.0 % (0.0-2.0) 1.1 % (0.0-2.0) Sodium Level 141 MMOL/L (136-145) 140 MMOL/L (136-145) Potassium Level 4.7 MMOL/L (3.5-5.1) 3.9 MMOL/L (3.5-5.1) Chloride Level 104 MMOL/L (98-107) 105 MMOL/L (98-107) Carbon Dioxide Level 35 MMOL/L (21-32) 33 MMOL/L (21-32) Anion Gap 2 mmol/L (5-15) 2 mmol/L (5-15) Blood Urea Nitrogen 17 mg/dL (7-18) 16 mg/dL (7-18) Creatinine 0.8 MG/DL (0.55-1.30) 0.7 MG/DL (0.55-1.30) Estimat Glomerular Filtration Rate > 60 mL/min (>60) > 60 mL/min (>60) Glucose Level 88 MG/DL (74-106) 84 MG/DL (74-106) Calcium Level 8.8 MG/DL (8.5-10.1) 8.7 MG/DL (8.5-10.1) Total Bilirubin 0.5 MG/DL (0.2-1.0) 0.5 MG/DL (0.2-1.0) Aspartate Amino Transf (AST/SGOT) 31 U/L (15-37) 29 U/L (15-37) Alanine Aminotransferase (ALT/SGPT) 28 U/L (12-78) 27 U/L (12-78) Alkaline Phosphatase 63 U/L (46-116) 52 U/L (46-116) Total Creatine Kinase 18 U/L (26-308) Creatine Kinase MB 0.5 NG/ML (0.0-3.6) Creatine Kinase MB Relative Index 2.7 Troponin I 0.008 ng/mL (0.000-0.056) Pro-B-Type Natriuretic Peptide 327 pg/mL (0-125) Total Protein 8.4 G/DL (6.4-8.2) 7.6 G/DL (6.4-8.2) Albumin 2.7 G/DL (3.4-5.0) 2.4 G/DL (3.4-5.0) Globulin 5.7 g/dL 5.2 g/dL Albumin/Globulin Ratio 0.5 (1.0-2.7) 0.5 (1.0-2.7) Lipase 58 U/L (73-393) Urine Color Mar Urine Appearance Clear Urine pH 5 (4.5-8.0) Urine Specific [place] 1.020 (1.005-1.035) Urine Protein Negative (NEGATIVE) Urine Glucose (UA) Negative (NEGATIVE) Urine Ketones Negative (NEGATIVE) Urine Blood Negative (NEGATIVE) Urine Nitrite Negative (NEGATIVE) Urine Bilirubin Negative (NEGATIVE) Urine Ictotest Negative (NEGATIVE) Urine Urobilinogen 4 MG/DL (0.0-1.0) Urine Leukocyte Esterase Negative (NEGATIVE) HIV (1&2) Antibody Rapid Negative (NEGATIVE) EKG: Rate: normal Rhythm: NSR ST Segments: no acute changes Chest X-Ray: no consolidation, no effusion, no pneumothorax, no acute disease - Catheters visualized from both neck region, left upper lobe nodule, basal atelectasis LE Venous Dupplex: negative for DVT CT abdomen pelvis Limited exam without intravenous and oral contrast. Significant streak artifact from left hip prosthesis also limits evaluation through the pelvis. Subtle abnormalities in these regions can be missed. Within these limitations: * Bibasilar airspace opacities which may be related to atelectasis however correlation with clinical findings is recommended to exclude the possibility of consolidation or aspiration. * Prominent colonic stool burden suggesting constipation. * Chilaiditi sign. * Atypical hepatic morphology which may suggest early cirrhotic changes. Correlation with liver function tests and clinical history recommended. No discrete hepatic mass lesion identified however sensitivity is limited on noncontrast exam. Consider follow-up multiphase contrast-enhanced MRI or CT of the liver as clinically indicated. * Extensive superficial venous collaterals in the abdominal wall which may suggest SVC occlusion or stenosis. Correlate clinically. Additional findings as above. This report corresponds with the preliminary report. Subjective ROS Limited/Unobtainable: No Allergies: Coded Allergies: ASPIRIN (Verified Allergy, Unknown, 06/30/19) Objective Last 24 Hour Vital Signs Date Time Temp Pulse Resp B/P (MAP) Pulse Ox O2 Delivery O2 Flow Rate FiO2 07/03/19 12:00 97.2 63 18 116/67 (83) 93 07/03/19 09:18 136/67 07/03/19 09:00 Room Air 07/03/19 08:00 96.8 64 18 136/67 (90) 94 07/03/19 04:00 97.9 66 20 132/77 (95) 97 07/03/19 00:00 97.2 68 20 120/66 (84) 96 07/02/19 21:00 Room Air 07/02/19 20:00 96.2 69 21 129/70 (89) 97 07/02/19 16:00 97.6 69 19 111/73 (86) 98 Intake and Output 07/02/19 07/03/19 19:00 07:00 Intake Total 800 ml Balance 800 ml Intake Oral 800 ml # Voids 4 # Bowel Movements 1 Microbiology Date/Time Source Procedure Growth Status 06/30/19 20:25 Blood Blood Culture - Preliminary NO GROWTH AFTER 48 HOURS Resulted 06/30/19 20:10 Blood Blood Culture - Preliminary NO GROWTH AFTER 48 HOURS Resulted 06/30/19 22:10 Nasal Nares MRSA Culture - Final NO METHICILLIN RESISTANT STAPH AUREUS... Complete 06/30/19 22:10 Rectum - Final NO CARBAPENEM-RESISTANT ENTEROBACTERI... Complete 06/30/19 22:10 Rectum VRE Culture - Final NO VANCOMYCIN RESISTANT ENTEROCOCCUS ... Complete Laboratory Tests 07/03/19 06:05: White Blood Count 5.5, Red Blood Count 4.42L, Hemoglobin 13.5L, Hematocrit 40.6L , Mean Corpuscular Volume 92, Mean Corpuscular Hemoglobin 30.4, Mean Corpuscular Hemoglobin Concent 33.2, Red Cell Distribution Width 13.7, Platelet Count 134L, Mean Platelet Volume 8.1, Neutrophils (%) (Auto) 61.6, Lymphocytes ( %) (Auto) 23.2, Monocytes (%) (Auto) 14.0H, Eosinophils (%) (Auto) 0.1, Basophils (%) (Auto) 1.1, Erythrocyte Sedimentation Rate 32H, Prothrombin Time 11.9H, Prothromb Time International Ratio 1.1, Activated Partial Thromboplast Time 31, Sodium Level 141, Potassium Level 4.0, Chloride Level 105, Carbon Dioxide Level 33H, Anion Gap 4L, Blood Urea Nitrogen 12, Creatinine 0.6, Estimat Glomerular Filtration Rate > 60, Glucose Level 76, Calcium Level 8.6, Total Bilirubin 0.4, Aspartate Amino Transf (AST/SGOT) 30, Alanine Aminotransferase (ALT/SGPT) 27, Alkaline Phosphatase 47, C-Reactive Protein, Quantitative 1.1H, Total Protein 7.4, Albumin 2.3L, Globulin 5.1, Albumin/ Globulin Ratio 0.5L, Amylase Level 32, Lipase 51L Current Medications Medications (Trade) Dose Ordered Sig/Deb Route PRN Reason Start Time Stop Time Status Last Admin Dose Admin Acetaminophen (Tylenol) 650 mg Q4H PRN ORAL Mild Pain/Temp > 100.5 07/01/19 00:45 07/31/19 00:44 Atorvastatin Calcium (Lipitor) 40 mg BEDTIME ORAL 07/01/19 21:00 07/31/19 20:59 07/02/19 20:23 Benztropine Mesylate (Cogentin) 1 mg TID ORAL 07/01/19 09:00 07/31/19 08:59 07/03/19 13:28 Clopidogrel Bisulfate (Plavix) 75 mg DAILY ORAL 07/01/19 09:00 07/31/19 08:59 07/03/19 09:17 Divalproex Sodium (Depakote) 500 mg BID ORAL 07/01/19 09:00 07/31/19 08:59 07/03/19 09:17 Docusate Sodium (Colace) 100 mg TWICE A DAY PRN ORAL Constipation 07/01/19 00:45 07/31/19 00:44 Furosemide (Lasix) 40 mg DAILY ORAL 07/01/19 09:00 07/31/19 08:59 07/03/19 09:19 Lisinopril (Prinivil) 20 mg DAILY ORAL 07/01/19 09:00 07/31/19 08:59 07/03/19 09:18 Mirtazapine (Remeron) 15 mg BEDTIME ORAL 07/03/19 21:00 08/02/19 20:59 Pantoprazole (Protonix) 40 mg DAILY@0630 ORAL 07/01/19 06:30 07/31/19 06:29 07/03/19 05:38 Loyd Mahajan MD Jul 03, 2019 14:54
[2019-07-03] MEDS ORDERED: Albuterol/Ipratropium 3ml neb HHN PRN (15:00)
[2019-07-03 16:00] VITALS: BP 119/80
[2019-07-03 20:00] VITALS: BP 123/70
--- NOTE | 2019-07-03 21:08 | General Progress Note ---
Assessment/Plan Problem List: (1) Weight loss ICD Codes: R63.4 - Abnormal weight loss SNOMED: 19086318, 749109150 (2) Dehydration ICD Codes: E86.0 - Dehydration SNOMED: 27687892 (3) Decubitus skin ulcer ICD Codes: L89.90 - Pressure ulcer of unspecified site, unspecified stage SNOMED: 535373271 Status: progressing Assessment/Plan: wt loss w/u per dr ratliff dehyration improving afebrile le edema r/o dvt Subjective ROS Limited/Unobtainable: Yes Allergies: Coded Allergies: ASPIRIN (Verified Allergy, Unknown, 06/30/19) Objective Last 24 Hour Vital Signs Date Time Temp Pulse Resp B/P (MAP) Pulse Ox O2 Delivery O2 Flow Rate FiO2 07/03/19 16:00 97.6 69 19 119/80 (93) 94 07/03/19 12:00 97.2 63 18 116/67 (83) 93 07/03/19 09:18 136/67 07/03/19 09:00 Room Air 07/03/19 08:00 96.8 64 18 136/67 (90) 94 07/03/19 04:00 97.9 66 20 132/77 (95) 97 07/03/19 00:00 97.2 68 20 120/66 (84) 96 Intake and Output 07/02/19 07/03/19 18:59 06:59 Intake Total 800 ml Balance 800 ml Intake Oral 800 ml # Voids 4 # Bowel Movements 1 Laboratory Tests 07/03/19 06:05: White Blood Count 5.5, Red Blood Count 4.42L, Hemoglobin 13.5L, Hematocrit 40.6L , Mean Corpuscular Volume 92, Mean Corpuscular Hemoglobin 30.4, Mean Corpuscular Hemoglobin Concent 33.2, Red Cell Distribution Width 13.7, Platelet Count 134L, Mean Platelet Volume 8.1, Neutrophils (%) (Auto) 61.6, Lymphocytes ( %) (Auto) 23.2, Monocytes (%) (Auto) 14.0H, Eosinophils (%) (Auto) 0.1, Basophils (%) (Auto) 1.1, Erythrocyte Sedimentation Rate 32H, Prothrombin Time 11.9H, Prothromb Time International Ratio 1.1, Activated Partial Thromboplast Time 31, Sodium Level 141, Potassium Level 4.0, Chloride Level 105, Carbon Dioxide Level 33H, Anion Gap 4L, Blood Urea Nitrogen 12, Creatinine 0.6, Estimat Glomerular Filtration Rate > 60, Glucose Level 76, Calcium Level 8.6, Total Bilirubin 0.4, Aspartate Amino Transf (AST/SGOT) 30, Alanine Aminotransferase (ALT/SGPT) 27, Alkaline Phosphatase 47, C-Reactive Protein, Quantitative 1.1H, Total Protein 7.4, Albumin 2.3L, Globulin 5.1, Albumin/ Globulin Ratio 0.5L, Amylase Level 32, Lipase 51L Height (Feet): 6 Height (Inches): 3.00 Weight (Pounds): 268 Cardiovascular: normal rate Respiratory/Chest: lungs clear Marifer Rodriguez MD Jul 03, 2019 21:08
[2019-07-03] MEDS: Atorvastatin 20mg tab ORAL SCH (21:34)
[2019-07-03] MEDS: Heparin 5000 units/ml inj SUBQ SCH (21:53)
[2019-07-04] VITALS (7 sets, daily range): BP systolic 115–141; BP diastolic 69–92
[2019-07-04 07:06] LABS: EOSINOPHILS % (AUTO) 1.7 % (0.0-3.0); HEMOGLOBIN 13.9 G/DL (14.2-18.0); LYMPHOCYTES % (AUTO) 26.3 % (20.0-45.0); MEAN CORPUSCULAR VOLUME 92 FL (80-99); MONOCYTES % (AUTO) 14.2 % (1.0-10.0); NEUTROPHILS % (AUTO) 56.8 % (45.0-75.0); PLATELET COUNT 125 K/UL (150-450); RED BLOOD COUNT 4.57 M/UL (4.70-6.10); WHITE BLOOD COUNT 6.2 K/UL (4.8-10.8)
[2019-07-04] MEDS: Heparin 5000 units/ml inj SUBQ SCH ×2 (09:00→20:33)
[2019-07-04] MEDS: Depakote 500mg tab ORAL SCH ×2 (09:04→17:20)
[2019-07-04] MEDS: Lisinopril 20mg tab ORAL SCH (09:06)
[2019-07-04] MEDS: Furosemide 40mg tab ORAL SCH (09:08)
[2019-07-04] MEDS: Benztropine 1mg tab ORAL SCH ×3 (09:09→17:20)
--- NOTE | 2019-07-04 15:03 | Surgery Progress Note ---
Surgery Progress Note Subjective Additional Comments no acute events comfortable stable no complaints Objective Last 24 Hour Vital Signs Date Time Temp Pulse Resp B/P (MAP) Pulse Ox O2 Delivery O2 Flow Rate FiO2 07/04/19 09:06 127/69 07/04/19 09:00 Room Air 07/04/19 08:00 97.2 70 18 127/69 (88) 94 07/04/19 04:00 98.2 73 18 137/73 (94) 94 07/04/19 00:00 97.6 64 17 132/81 (98) 94 07/03/19 21:00 Room Air 07/03/19 20:00 97.7 64 18 123/70 (87) 94 07/03/19 16:00 97.6 69 19 119/80 (93) 94 I&O Intake and Output 07/03/19 07/04/19 19:00 07:00 Intake Total 600 ml Balance 600 ml Intake Oral 600 ml # Voids 4 # Bowel Movements 3 Dressing: other Wound: other Drains: other Cardiovascular: RSR Respiratory: decreased breath sounds Abdomen: soft, present bowel sounds Extremities: no edema, no tenderness, no cyanosis Laboratory Tests Test 07/04/19 05:40 White Blood Count 6.2 K/UL (4.8-10.8) Red Blood Count 4.57 M/UL (4.70-6.10) L Hemoglobin 13.9 G/DL (14.2-18.0) L Hematocrit 42.0 % (42.0-52.0) Mean Corpuscular Volume 92 FL (80-99) Mean Corpuscular Hemoglobin 30.4 PG (27.0-31.0) Mean Corpuscular Hemoglobin Concent 33.1 G/DL (32.0-36.0) Red Cell Distribution Width 14.0 % (11.6-14.8) Platelet Count 125 K/UL (150-450) L Mean Platelet Volume 7.9 FL (6.5-10.1) Neutrophils (%) (Auto) 56.8 % (45.0-75.0) Lymphocytes (%) (Auto) 26.3 % (20.0-45.0) Monocytes (%) (Auto) 14.2 % (1.0-10.0) H Eosinophils (%) (Auto) 1.7 % (0.0-3.0) Basophils (%) (Auto) 1.0 % (0.0-2.0) Plan Problems: (1) Weight loss Assessment & Plan: DAILY ESTIMATED NEEDS: Needs based on Pulmonary, obese, wound 97kg adj 20-25 kcals/kg 5339-8404 total kcals 1.25-1.5 g protein/kg 121-146 g total protein Fluid per MD, on lasix NUTRITION DIAGNOSIS: Unintentional weight loss r/t etiology unknown as evidenced by pt presents w/ 39# wt loss x1 month, 12-13% wt change, severe. CURRENT DIET:Regular PO DIET RECOMMENDATIONS: Low Na diet (texture per JACK SPOOLER TENDER or as tolerated) ADDITIONAL RECOMMENDATIONS: 1) Obtain weekly CALIBRATED weights as pt adm w/ 39# wt loss x1 mo 2) Closely monitor po intake Rec to Add SNACK in b.w meals Will monitor po intake, need for Ensure 3) On lasix, monitor lytes daily 4) F/up w/ WC eval: rec to add JOHNNA BID (2) Decubitus skin ulcer Assessment & Plan: Pt presented on admission with full thickness stage 3 wound with punched -out appearance L buttock(L)0.6cm x (W)0.5cm x (D)0.3cm. Periwound is erythematous and indurated. NO exudate noted. Pt verbalized area is tender when minimally palpated. Scrotum, Sacral area and R buttocks without erythema or evidence of skin breakdown. Both heels are firm and blanchable. Tx.Plan: Cleanse wound L buttocks with Saline. Apply Therahoney. Apply Moisture Barrier periwound. Cover with Optifoam Drsg every 3 days and prn. Apply Cavilon SKin Barrier to both heels. Cover each heel with Optifoam drsg. Change every 7 days and prn. Apply Moisture Barrier to Scrotum, Sacrum and R buttocks with each incontinence care. Reposition at least every 2 hours or as tolerated. Off-load heels with pillow. Marco Antonio Burns Jul 04, 2019 15:03
--- NOTE | 2019-07-04 15:40 | Hematology/Onc Progress Note ---
Assessment/Plan Assessment/Plan Assessment and Recs: # Thrombocytopenia -- labs and imaging, likely early cirrhosis as well as HEPATITIS C++ --> obtain ct of the a/p and results noted --> afp tumor markers, along with cea, ca 19.9 --> COAGS ordered --> treat underlying hepatitis C once discharged --> plt trend: 125 # Failure to thrive recent weight loss --> imaging noted and no significant mass/metastatic disease/infectious process noted --> calorie counts, ot/pt # Dehydration --> ivf have been started # Weight loss # Atypical hepatic morphology which may suggest early cirrhotic changes. # Extensive superficial venous collaterals in the abdominal wall which may suggest SVC occlusion or stenosis # Azotemia as per renal # Psych disorder as per Duy CARPENTER Rn and appreciate consultation. Subjective Allergies: Coded Allergies: ASPIRIN (Verified Allergy, Unknown, 06/30/19) Subjective 07/04: awake and alert, no acute events, venous duplex negative, labs reviewed Objective Objective Current Medications Medications (Trade) Dose Ordered Sig/Deb Route PRN Reason Start Time Stop Time Status Last Admin Dose Admin Acetaminophen (Tylenol) 650 mg Q4H PRN ORAL Mild Pain/Temp > 100.5 07/01/19 00:45 07/31/19 00:44 Albuterol/ Ipratropium (Albuterol/ Ipratropium) 3 ml Q6H PRN HHN Shortness of Breath 07/03/19 15:00 07/08/19 14:59 Atorvastatin Calcium (Lipitor) 40 mg BEDTIME ORAL 07/01/19 21:00 07/31/19 20:59 07/03/19 21:34 Benztropine Mesylate (Cogentin) 1 mg TID ORAL 07/01/19 09:00 07/31/19 08:59 07/04/19 13:00 Clopidogrel Bisulfate (Plavix) 75 mg DAILY ORAL 07/01/19 09:00 07/31/19 08:59 07/03/19 09:17 Divalproex Sodium (Depakote) 500 mg BID ORAL 07/01/19 09:00 07/31/19 08:59 07/04/19 09:04 Docusate Sodium (Colace) 100 mg TWICE A DAY PRN ORAL Constipation 07/01/19 00:45 07/31/19 00:44 Furosemide (Lasix) 40 mg DAILY ORAL 07/01/19 09:00 07/31/19 08:59 07/04/19 09:08 Heparin Sodium (Porcine) (Heparin 5000 units/ml) 5,000 units EVERY 12 HOURS SUBQ 07/03/19 21:00 08/02/19 20:59 07/03/19 21:53 Lisinopril (Prinivil) 20 mg DAILY ORAL 07/01/19 09:00 07/31/19 08:59 07/04/19 09:06 Mirtazapine (Remeron) 15 mg BEDTIME ORAL 07/03/19 21:00 08/02/19 20:59 07/03/19 21:34 Pantoprazole (Protonix) 40 mg DAILY@0630 ORAL 07/01/19 06:30 07/31/19 06:29 07/04/19 06:40 Last 24 Hour Vital Signs Date Time Temp Pulse Resp B/P (MAP) Pulse Ox O2 Delivery O2 Flow Rate FiO2 07/04/19 14:00 97.8 63 18 124/78 (93) 94 07/04/19 09:06 127/69 07/04/19 09:00 Room Air 07/04/19 08:00 97.2 70 18 127/69 (88) 94 07/04/19 04:00 98.2 73 18 137/73 (94) 94 07/04/19 00:00 97.6 64 17 132/81 (98) 94 07/03/19 21:00 Room Air 07/03/19 20:00 97.7 64 18 123/70 (87) 94 07/03/19 16:00 97.6 69 19 119/80 (93) 94 07/03/19 12:00 97.2 63 18 116/67 (83) 93 07/03/19 09:18 136/67 07/03/19 09:00 Room Air 07/03/19 08:00 96.8 64 18 136/67 (90) 94 07/03/19 04:00 97.9 66 20 132/77 (95) 97 07/03/19 00:00 97.2 68 20 120/66 (84) 96 07/02/19 21:00 Room Air 07/02/19 20:00 96.2 69 21 129/70 (89) 97 07/02/19 16:00 97.6 69 19 111/73 (86) 98 Intake and Output 07/03/19 07/04/19 19:00 07:00 Intake Total 600 ml Balance 600 ml Intake Oral 600 ml # Voids 4 # Bowel Movements 3 Labs Test 07/02/19 06:10 07/02/19 08:35 07/03/19 06:05 07/04/19 05:40 White Blood Count 5.7 K/UL (4.8-10.8) 5.5 K/UL (4.8-10.8) 6.2 K/UL (4.8-10.8) Red Blood Count 4.50 M/UL (4.70-6.10) 4.42 M/UL (4.70-6.10) 4.57 M/UL (4.70-6.10) Hemoglobin 13.6 G/DL (14.2-18.0) 13.5 G/DL (14.2-18.0) 13.9 G/DL (14.2-18.0) Hematocrit 41.4 % (42.0-52.0) 40.6 % (42.0-52.0) 42.0 % (42.0-52.0) Mean Corpuscular Volume 92 FL (80-99) 92 FL (80-99) 92 FL (80-99) Mean Corpuscular Hemoglobin 30.2 PG (27.0-31.0) 30.4 PG (27.0-31.0) 30.4 PG (27.0-31.0) Mean Corpuscular Hemoglobin Concent 32.8 G/DL (32.0-36.0) 33.2 G/DL (32.0-36.0) 33.1 G/DL (32.0-36.0) Red Cell Distribution Width 14.1 % (11.6-14.8) 13.7 % (11.6-14.8) 14.0 % (11.6-14.8) Platelet Count 140 K/UL (150-450) 134 K/UL (150-450) 125 K/UL (150-450) Mean Platelet Volume 9.0 FL (6.5-10.1) 8.1 FL (6.5-10.1) 7.9 FL (6.5-10.1) Neutrophils (%) (Auto) 56.2 % (45.0-75.0) 61.6 % (45.0-75.0) 56.8 % (45.0-75.0) Lymphocytes (%) (Auto) 25.8 % (20.0-45.0) 23.2 % (20.0-45.0) 26.3 % (20.0-45.0) Monocytes (%) (Auto) 15.0 % (1.0-10.0) 14.0 % (1.0-10.0) 14.2 % (1.0-10.0) Eosinophils (%) (Auto) 1.9 % (0.0-3.0) 0.1 % (0.0-3.0) 1.7 % (0.0-3.0) Basophils (%) (Auto) 1.1 % (0.0-2.0) 1.1 % (0.0-2.0) 1.0 % (0.0-2.0) Alpha Fetoprotein 1.8 ng/mL (0.0-8.3) Prothrombin Time 11.4 SEC (9.30-11.50) 11.9 SEC (9.30-11.50) Prothromb Time International Ratio 1.1 (0.9-1.1) 1.1 (0.9-1.1) Erythrocyte Sedimentation Rate 32 MM/HR (0-20) Activated Partial Thromboplast Time 31 SEC (23-33) Sodium Level 141 MMOL/L (136-145) Potassium Level 4.0 MMOL/L (3.5-5.1) Chloride Level 105 MMOL/L (98-107) Carbon Dioxide Level 33 MMOL/L (21-32) Anion Gap 4 mmol/L (5-15) Blood Urea Nitrogen 12 mg/dL (7-18) Creatinine 0.6 MG/DL (0.55-1.30) Estimat Glomerular Filtration Rate > 60 mL/min (>60) Glucose Level 76 MG/DL (74-106) Calcium Level 8.6 MG/DL (8.5-10.1) Total Bilirubin 0.4 MG/DL (0.2-1.0) Aspartate Amino Transf (AST/SGOT) 30 U/L (15-37) Alanine Aminotransferase (ALT/SGPT) 27 U/L (12-78) Alkaline Phosphatase 47 U/L (46-116) C-Reactive Protein, Quantitative 1.1 mg/dL (0.00-0.90) Total Protein 7.4 G/DL (6.4-8.2) Albumin 2.3 G/DL (3.4-5.0) Globulin 5.1 g/dL Albumin/Globulin Ratio 0.5 (1.0-2.7) Amylase Level 32 U/L (25-115) Lipase 51 U/L (73-393) Height (Feet): 6 Height (Inches): 3.00 Weight (Pounds): 268 Objective PE Vitals: reviewed, normal General: no apparent distress Neck: supple, thyroid normal Resp: lungs clear, no retraction, no accessory muscle use CV: regular rate, rhythm GI: non tender, soft MSK: Patient chronically debilitated however able to have equal director business systems bilaterally on the upper extremities Neurologic: alert, oriented x3 Skin: no rash Lymphatic: no adenopathy Cody Mcneil MD Jul 04, 2019 15:40
--- NOTE | 2019-07-04 17:23 | Pulmonology Progress Note ---
Assessment/Plan Assessment/Plan Pulmonary Progress Note HPI Patient admitted from nursing facility with weight loss, decreased appetite for a few weeks Denies any chest pain or shortness of breath denies any back or flank pain Denies any neck pain or photophobia denies any recent trauma Allergies: ASPIRIN Past Medical History: Organic Brain Syndrome, Seizures, Hypertension, Chronic Obstructive Pulmonary Disease, Left Upper Lobe Pulmonary Nodule, Seizures, Pressure wounds, UE Cellulitis, Hepatitis C, Thrombocytopenia All Other Systems: negative except mentioned in HPI Physical Exam Vital Signs Noted General Appearance: Patient appears morbidly obese, and is chronically debilitated, no apparent distress Head: normocephalic, atraumatic Eyes: bilateral eye PERRL, bilateral eye EOMI ENT: moist mm Neck: supple, thyroid normal Respiratory: lungs clear, no retraction, no accessory muscle use Cardiovascular: regular rate, HS1, HS2 RRR, rhythm Gastrointestinal: non tender, soft Musculoskeletal: other - Patient chronically debilitated however able to have equal psychotherapist counselor bilaterally on the upper extremities Neurologic: alert, oriented x3 Skin: no rash Lymphatic: no adenopathy Impression: Dehydration on admission, improved Weight loss Chronic Obstructive Pulmonary Disease Left Upper Lobe Pulmonary Nodule on CXR Basal atelectasis Organic Brain Syndrome Seizures Hypertension Pressure woundsPrevious UE Cellulitis Hepatitis C Plan - O2 PRN - HHN - LE dupplex negative for DVT - PPX - Monitor labs - CT Chest - non contrast Labs Test 06/30/19 20:20 06/30/19 22:15 07/01/19 07:25 07/01/19 09:50 White Blood Count 6.4 K/UL (4.8-10.8) 6.5 K/UL (4.8-10.8) Red Blood Count 4.87 M/UL (4.70-6.10) 4.51 M/UL (4.70-6.10) Hemoglobin 14.7 G/DL (14.2-18.0) 13.6 G/DL (14.2-18.0) Hematocrit 42.9 % (42.0-52.0) 41.3 % (42.0-52.0) Mean Corpuscular Volume 88 FL (80-99) 92 FL (80-99) Mean Corpuscular Hemoglobin 30.2 PG (27.0-31.0) 30.2 PG (27.0-31.0) Mean Corpuscular Hemoglobin Concent 34.3 G/DL (32.0-36.0) 32.9 G/DL (32.0-36.0) Red Cell Distribution Width 12.8 % (11.6-14.8) 14.3 % (11.6-14.8) Platelet Count 158 K/UL (150-450) 148 K/UL (150-450) Mean Platelet Volume 7.4 FL (6.5-10.1) 8.3 FL (6.5-10.1) Neutrophils (%) (Auto) 64.5 % (45.0-75.0) 62.7 % (45.0-75.0) Lymphocytes (%) (Auto) 24.3 % (20.0-45.0) 21.2 % (20.0-45.0) Monocytes (%) (Auto) 9.1 % (1.0-10.0) 13.7 % (1.0-10.0) Eosinophils (%) (Auto) 0.1 % (0.0-3.0) 1.4 % (0.0-3.0) Basophils (%) (Auto) 2.0 % (0.0-2.0) 1.1 % (0.0-2.0) Sodium Level 141 MMOL/L (136-145) 140 MMOL/L (136-145) Potassium Level 4.7 MMOL/L (3.5-5.1) 3.9 MMOL/L (3.5-5.1) Chloride Level 104 MMOL/L (98-107) 105 MMOL/L (98-107) Carbon Dioxide Level 35 MMOL/L (21-32) 33 MMOL/L (21-32) Anion Gap 2 mmol/L (5-15) 2 mmol/L (5-15) Blood Urea Nitrogen 17 mg/dL (7-18) 16 mg/dL (7-18) Creatinine 0.8 MG/DL (0.55-1.30) 0.7 MG/DL (0.55-1.30) Estimat Glomerular Filtration Rate > 60 mL/min (>60) > 60 mL/min (>60) Glucose Level 88 MG/DL (74-106) 84 MG/DL (74-106) Calcium Level 8.8 MG/DL (8.5-10.1) 8.7 MG/DL (8.5-10.1) Total Bilirubin 0.5 MG/DL (0.2-1.0) 0.5 MG/DL (0.2-1.0) Aspartate Amino Transf (AST/SGOT) 31 U/L (15-37) 29 U/L (15-37) Alanine Aminotransferase (ALT/SGPT) 28 U/L (12-78) 27 U/L (12-78) Alkaline Phosphatase 63 U/L (46-116) 52 U/L (46-116) Total Creatine Kinase 18 U/L (26-308) Creatine Kinase MB 0.5 NG/ML (0.0-3.6) Creatine Kinase MB Relative Index 2.7 Troponin I 0.008 ng/mL (0.000-0.056) Pro-B-Type Natriuretic Peptide 327 pg/mL (0-125) Total Protein 8.4 G/DL (6.4-8.2) 7.6 G/DL (6.4-8.2) Albumin 2.7 G/DL (3.4-5.0) 2.4 G/DL (3.4-5.0) Globulin 5.7 g/dL 5.2 g/dL Albumin/Globulin Ratio 0.5 (1.0-2.7) 0.5 (1.0-2.7) Lipase 58 U/L (73-393) Urine Color Mar Urine Appearance Clear Urine pH 5 (4.5-8.0) Urine Specific Addison 1.020 (1.005-1.035) Urine Protein Negative (NEGATIVE) Urine Glucose (UA) Negative (NEGATIVE) Urine Ketones Negative (NEGATIVE) Urine Blood Negative (NEGATIVE) Urine Nitrite Negative (NEGATIVE) Urine Bilirubin Negative (NEGATIVE) Urine Ictotest Negative (NEGATIVE) Urine Urobilinogen 4 MG/DL (0.0-1.0) Urine Leukocyte Esterase Negative (NEGATIVE) HIV (1&2) Antibody Rapid Negative (NEGATIVE) EKG: Rate: normal Rhythm: NSR ST Segments: no acute changes Chest X-Ray: no consolidation, no effusion, no pneumothorax, no acute disease - Catheters visualized from both neck region, left upper lobe nodule, basal atelectasis LE Venous Dupplex: negative for DVT CT abdomen pelvis Limited exam without intravenous and oral contrast. Significant streak artifact from left hip prosthesis also limits evaluation through the pelvis. Subtle abnormalities in these regions can be missed. Within these limitations: * Bibasilar airspace opacities which may be related to atelectasis however correlation with clinical findings is recommended to exclude the possibility of consolidation or aspiration. * Prominent colonic stool burden suggesting constipation. * Chilaiditi sign. * Atypical hepatic morphology which may suggest early cirrhotic changes. Correlation with liver function tests and clinical history recommended. No discrete hepatic mass lesion identified however sensitivity is limited on noncontrast exam. Consider follow-up multiphase contrast-enhanced MRI or CT of the liver as clinically indicated. * Extensive superficial venous collaterals in the abdominal wall which may suggest SVC occlusion or stenosis. Correlate clinically. Additional findings as above. This report corresponds with the preliminary report. Subjective ROS Limited/Unobtainable: No Allergies: Coded Allergies: ASPIRIN (Verified Allergy, Unknown, 06/30/19) Objective Last 24 Hour Vital Signs Date Time Temp Pulse Resp B/P (MAP) Pulse Ox O2 Delivery O2 Flow Rate FiO2 07/04/19 16:00 97.0 78 18 141/92 (108) 95 07/04/19 14:00 97.8 63 18 124/78 (93) 94 07/04/19 12:00 97.8 63 18 127/78 (94) 94 07/04/19 09:06 127/69 07/04/19 09:00 Room Air 07/04/19 08:00 97.2 70 18 127/69 (88) 94 07/04/19 04:00 98.2 73 18 137/73 (94) 94 07/04/19 00:00 97.6 64 17 132/81 (98) 94 07/03/19 21:00 Room Air 07/03/19 20:00 97.7 64 18 123/70 (87) 94 Intake and Output 07/03/19 07/04/19 19:00 07:00 Intake Total 600 ml Balance 600 ml Intake Oral 600 ml # Voids 4 # Bowel Movements 3 Laboratory Tests 07/04/19 05:40: White Blood Count 6.2, Red Blood Count 4.57L, Hemoglobin 13.9L, Hematocrit 42.0 , Mean Corpuscular Volume 92, Mean Corpuscular Hemoglobin 30.4, Mean Corpuscular Hemoglobin Concent 33.1, Red Cell Distribution Width 14.0, Platelet Count 125L, Mean Platelet Volume 7.9, Neutrophils (%) (Auto) 56.8, Lymphocytes ( %) (Auto) 26.3, Monocytes (%) (Auto) 14.2H, Eosinophils (%) (Auto) 1.7, Basophils (%) (Auto) 1.0 Current Medications Medications (Trade) Dose Ordered Sig/Deb Route PRN Reason Start Time Stop Time Status Last Admin Dose Admin Acetaminophen (Tylenol) 650 mg Q4H PRN ORAL Mild Pain/Temp > 100.5 07/01/19 00:45 07/31/19 00:44 Albuterol/ Ipratropium (Albuterol/ Ipratropium) 3 ml Q6H PRN HHN Shortness of Breath 07/03/19 15:00 07/08/19 14:59 Atorvastatin Calcium (Lipitor) 40 mg BEDTIME ORAL 07/01/19 21:00 07/31/19 20:59 07/03/19 21:34 Benztropine Mesylate (Cogentin) 1 mg TID ORAL 07/01/19 09:00 07/31/19 08:59 07/04/19 17:20 Clopidogrel Bisulfate (Plavix) 75 mg DAILY ORAL 07/01/19 09:00 07/31/19 08:59 07/03/19 09:17 Divalproex Sodium (Depakote) 500 mg BID ORAL 07/01/19 09:00 07/31/19 08:59 07/04/19 17:20 Docusate Sodium (Colace) 100 mg TWICE A DAY PRN ORAL Constipation 07/01/19 00:45 07/31/19 00:44 Furosemide (Lasix) 40 mg DAILY ORAL 07/01/19 09:00 07/31/19 08:59 07/04/19 09:08 Heparin Sodium (Porcine) (Heparin 5000 units/ml) 5,000 units EVERY 12 HOURS SUBQ 07/03/19 21:00 08/02/19 20:59 07/03/19 21:53 Lisinopril (Prinivil) 20 mg DAILY ORAL 07/01/19 09:00 07/31/19 08:59 07/04/19 09:06 Mirtazapine (Remeron) 15 mg BEDTIME ORAL 07/03/19 21:00 08/02/19 20:59 07/03/19 21:34 Pantoprazole (Protonix) 40 mg DAILY@0630 ORAL 07/01/19 06:30 07/31/19 06:29 07/04/19 06:40 Loyd Mahajan MD Jul 04, 2019 17:23
[2019-07-04] MEDS: Atorvastatin 20mg tab ORAL SCH (20:32)
--- NOTE | 2019-07-04 20:35 | General Progress Note ---
Assessment/Plan Problem List: (1) Weight loss ICD Codes: R63.4 - Abnormal weight loss SNOMED: 30263516, 121224056 (2) Dehydration ICD Codes: E86.0 - Dehydration SNOMED: 72646339 (3) Decubitus skin ulcer ICD Codes: L89.90 - Pressure ulcer of unspecified site, unspecified stage SNOMED: 239570988 Status: progressing Assessment/Plan: wt loss w/u per dr ratliff check labs no pain encourge fluids dc planning Subjective ROS Limited/Unobtainable: Yes Allergies: Coded Allergies: ASPIRIN (Verified Allergy, Unknown, 06/30/19) Objective Last 24 Hour Vital Signs Date Time Temp Pulse Resp B/P (MAP) Pulse Ox O2 Delivery O2 Flow Rate FiO2 07/04/19 20:00 97.8 83 23 115/82 (93) 97 07/04/19 16:00 97.0 78 18 141/92 (108) 95 07/04/19 14:00 97.8 63 18 124/78 (93) 94 07/04/19 12:00 97.8 63 18 127/78 (94) 94 07/04/19 09:06 127/69 07/04/19 09:00 Room Air 07/04/19 08:00 97.2 70 18 127/69 (88) 94 07/04/19 04:00 98.2 73 18 137/73 (94) 94 07/04/19 00:00 97.6 64 17 132/81 (98) 94 07/03/19 21:00 Room Air Intake and Output 07/03/19 07/04/19 19:00 07:00 Intake Total 600 ml Balance 600 ml Intake Oral 600 ml # Voids 4 # Bowel Movements 3 Laboratory Tests 07/04/19 05:40: White Blood Count 6.2, Red Blood Count 4.57L, Hemoglobin 13.9L, Hematocrit 42.0 , Mean Corpuscular Volume 92, Mean Corpuscular Hemoglobin 30.4, Mean Corpuscular Hemoglobin Concent 33.1, Red Cell Distribution Width 14.0, Platelet Count 125L, Mean Platelet Volume 7.9, Neutrophils (%) (Auto) 56.8, Lymphocytes ( %) (Auto) 26.3, Monocytes (%) (Auto) 14.2H, Eosinophils (%) (Auto) 1.7, Basophils (%) (Auto) 1.0 Height (Feet): 6 Height (Inches): 3.00 Weight (Pounds): 268 Cardiovascular: normal rate Respiratory/Chest: lungs clear Abdomen: soft Marifer Rodriguez MD Jul 04, 2019 20:35
[2019-07-05 00:16] VITALS: BP 118/80
[2019-07-05 04:44] VITALS: BP 122/84
[2019-07-05 08:00] VITALS: BP 136/87
[2019-07-05] MEDS: Heparin 5000 units/ml inj SUBQ SCH (09:00)
[2019-07-05] MEDS: Depakote 500mg tab ORAL SCH (09:49)
[2019-07-05] MEDS: Furosemide 40mg tab ORAL SCH (09:49)
[2019-07-05] MEDS: Benztropine 1mg tab ORAL SCH ×2 (09:49→13:45)
[2019-07-05] MEDS: Lisinopril 20mg tab ORAL SCH (09:50)
[2019-07-05 12:00] VITALS: BP 165/79
--- NOTE | 2019-07-05 14:48 | Diagnostic Imaging Report ---
Clinical Indication: Chest pain, abnormal recent chest radiograph Technique: Spiral acquisitions obtained through the chest. No IV contrast utilized, per referring physician request. Multiplanar reconstructions generated. Total dose length product 2446 mGycm. CTDIvol(s) 54 mGy. Dose reduction achieved using automated exposure control Comparison: Chest radiograph dated 06/30/2019 Findings: 8 mm nodule seen in the right upper lobe subpleural area. This is mostly although not completely calcified. This corresponds to abnormality demonstrated on recent chest radiograph. A few small subpleural blebs are seen in the right lung apex. A larger bulla is seen at the left lung base. Some compressive atelectasis is seen involving posterior left lower lobe. Similar findings are seen involving the right lower lobe. There is also minimal linear atelectasis at the right lung base. The remainder of the lungs and pleural spaces are clear. There is what is presumably a left jugular venous catheter, catheter tubing projecting cephalad beyond the imaging volume. However, the left jugular and innominate veins are not clearly identifiable, may be scarred down. There is also a right jugular venous catheter. This demonstrates narrow caliber of the surrounding innominate vein and superior vena cava. There are prominent chest wall venous collaterals, likely indicating significant central venoocclusive disease. Prominent collaterals are also seen within the mediastinum. A left shoulder prosthesis is present. This throws off streak artifact which may obscure pathology. No axillary or chest wall mass or adenopathy. Upper mediastinal prominence reported on recent chest radiograph is noted to be due to prominent upper mediastinal fat. The heart size is normal. No pericardial effusion. The esophagus is unremarkable. No mediastinal or hilar mass or adenopathy. Included upper abdominal anatomy demonstrates eventration of the right hemidiaphragm. Impression: 8 mm right upper lobe nodule, demonstrating calcification. Most likely benign although not completely calcified. However, if there is significant smoking history, 6-12 months short interval follow-up CT should be obtained Bilateral jugular venous catheters.. Atretic appearing jugular and innominate veins, presence of extensive venous collaterals likely indicates significant central venoocclusive disease, possibly related to these Right apical subpleural blebs and left basilar bulla, could indicate COPD changes Left shoulder prosthesis Other findings as noted The CT scanner at [facility] is accredited by the [employer] and the scans are performed using protocols designed to limit radiation exposure to as low as reasonably achievable to attain images of sufficient resolution adequate for diagnostic evaluation.
--- NOTE | 2019-07-05 15:05 | Hematology/Onc Progress Note ---
Assessment/Plan Assessment/Plan Assessment and Recs: # Thrombocytopenia -- labs and imaging, likely early cirrhosis as well as HEPATITIS C++ --> obtain ct of the a/p and results noted --> afp tumor markers, along with cea, ca 19.9 --> COAGS ordered --> treat underlying hepatitis C once discharged --> plt trend: 125 # Failure to thrive recent weight loss --> imaging noted and no significant mass/metastatic disease/infectious process noted --> calorie counts, ot/pt --> meds reviewed as well # Dehydration --> ivf have been started # Weight loss # Atypical hepatic morphology which may suggest early cirrhotic changes. # Extensive superficial venous collaterals in the abdominal wall which may suggest SVC occlusion or stenosis # Azotemia as per renal # Psych disorder as per Duy CARPENTER Rn and appreciate consultation. Subjective Constitutional: Denies: no symptoms, chills, fever, malaise, weakness, other HEENT: Denies: no symptoms, eye pain, blurred vision, tearing, double vision, ear pain, ear discharge, nose pain, nose congestion, throat pain, throat swelling, mouth pain, mouth swelling, other Cardiovascular: Denies: no symptoms, chest pain, edema, irregular heart rate, lightheadedness, palpitations, syncope, other Respiratory: Denies: no symptoms, cough, shortness of breath, SOB with excertion, SOB at rest, sputum, wheezing, other Gastrointestinal/Abdominal: Denies: no symptoms, abdomen distended, abdominal pain, black stools, tarry stools, blood in stool, constipated, diarrhea, difficulty swallowing, nausea, poor appetite, poor fluid intake, rectal bleeding , vomiting, other Genitourinary: Reports: no symptoms, burning, discharge, frequency, flank pain , hematuria, incontinence, pain, urgency, other Neurologic/Psychiatric: Denies: no symptoms, anxiety, depressed, emotional problems, headache, numbness, paresthesia, pre-existing deficit, seizure, tingling, tremors, weakness, other Endocrine: Denies: no symptoms, excessive sweating, flushing, intolerance to cold, intolerance to heat, increased hunger, increased thirst, increased urine, unexplained weight gain, unexplained weight loss, other Allergies: Coded Allergies: ASPIRIN (Verified Allergy, Unknown, 06/30/19) Subjective 07/04: awake and alert, no acute events, venous duplex negative, labs reviewed 07/05: forgetful and remains confused, labs are noted, no bleeding Objective Objective Current Medications Medications (Trade) Dose Ordered Sig/Deb Route PRN Reason Start Time Stop Time Status Last Admin Dose Admin Acetaminophen (Tylenol) 650 mg Q4H PRN ORAL Mild Pain/Temp > 100.5 07/01/19 00:45 07/31/19 00:44 Albuterol/ Ipratropium (Albuterol/ Ipratropium) 3 ml Q6H PRN HHN Shortness of Breath 07/03/19 15:00 07/08/19 14:59 Atorvastatin Calcium (Lipitor) 40 mg BEDTIME ORAL 07/01/19 21:00 07/31/19 20:59 07/04/19 20:32 Benztropine Mesylate (Cogentin) 1 mg TID ORAL 07/01/19 09:00 07/31/19 08:59 07/05/19 13:45 Clopidogrel Bisulfate (Plavix) 75 mg DAILY ORAL 07/01/19 09:00 07/31/19 08:59 07/05/19 09:49 Divalproex Sodium (Depakote) 500 mg BID ORAL 07/01/19 09:00 07/31/19 08:59 07/05/19 09:49 Docusate Sodium (Colace) 100 mg TWICE A DAY PRN ORAL Constipation 07/01/19 00:45 07/31/19 00:44 Furosemide (Lasix) 40 mg DAILY ORAL 07/01/19 09:00 07/31/19 08:59 07/05/19 09:49 Heparin Sodium (Porcine) (Heparin 5000 units/ml) 5,000 units EVERY 12 HOURS SUBQ 07/03/19 21:00 08/02/19 20:59 07/03/19 21:53 Lisinopril (Prinivil) 20 mg DAILY ORAL 07/01/19 09:00 07/31/19 08:59 07/05/19 09:50 Mirtazapine (Remeron) 15 mg BEDTIME ORAL 07/03/19 21:00 08/02/19 20:59 07/04/19 20:32 Pantoprazole (Protonix) 40 mg DAILY@0630 ORAL 07/01/19 06:30 07/31/19 06:29 07/05/19 06:00 Last 24 Hour Vital Signs Date Time Temp Pulse Resp B/P (MAP) Pulse Ox O2 Delivery O2 Flow Rate FiO2 07/05/19 09:50 136/87 07/05/19 09:00 Room Air 07/05/19 08:00 96.6 81 20 136/87 (103) 93 07/05/19 04:44 98.9 79 20 122/84 (97) 95 07/05/19 00:16 97.4 80 22 118/80 (93) 97 07/04/19 21:07 Room Air 07/04/19 20:00 97.8 83 23 115/82 (93) 97 07/04/19 16:00 97.0 78 18 141/92 (108) 95 07/04/19 14:00 97.8 63 18 124/78 (93) 94 07/04/19 12:00 97.8 63 18 127/78 (94) 94 07/04/19 09:06 127/69 07/04/19 09:00 Room Air 07/04/19 08:00 97.2 70 18 127/69 (88) 94 07/04/19 04:00 98.2 73 18 137/73 (94) 94 07/04/19 00:00 97.6 64 17 132/81 (98) 94 07/03/19 21:00 Room Air 07/03/19 20:00 97.7 64 18 123/70 (87) 94 07/03/19 16:00 97.6 69 19 119/80 (93) 94 Intake and Output 07/04/19 07/05/19 19:00 07:00 Intake Total 720 ml Balance 720 ml Intake Oral 720 ml # Voids 4 Labs Test 07/03/19 06:05 07/04/19 05:40 White Blood Count 5.5 K/UL (4.8-10.8) 6.2 K/UL (4.8-10.8) Red Blood Count 4.42 M/UL (4.70-6.10) 4.57 M/UL (4.70-6.10) Hemoglobin 13.5 G/DL (14.2-18.0) 13.9 G/DL (14.2-18.0) Hematocrit 40.6 % (42.0-52.0) 42.0 % (42.0-52.0) Mean Corpuscular Volume 92 FL (80-99) 92 FL (80-99) Mean Corpuscular Hemoglobin 30.4 PG (27.0-31.0) 30.4 PG (27.0-31.0) Mean Corpuscular Hemoglobin Concent 33.2 G/DL (32.0-36.0) 33.1 G/DL (32.0-36.0) Red Cell Distribution Width 13.7 % (11.6-14.8) 14.0 % (11.6-14.8) Platelet Count 134 K/UL (150-450) 125 K/UL (150-450) Mean Platelet Volume 8.1 FL (6.5-10.1) 7.9 FL (6.5-10.1) Neutrophils (%) (Auto) 61.6 % (45.0-75.0) 56.8 % (45.0-75.0) Lymphocytes (%) (Auto) 23.2 % (20.0-45.0) 26.3 % (20.0-45.0) Monocytes (%) (Auto) 14.0 % (1.0-10.0) 14.2 % (1.0-10.0) Eosinophils (%) (Auto) 0.1 % (0.0-3.0) 1.7 % (0.0-3.0) Basophils (%) (Auto) 1.1 % (0.0-2.0) 1.0 % (0.0-2.0) Erythrocyte Sedimentation Rate 32 MM/HR (0-20) Prothrombin Time 11.9 SEC (9.30-11.50) Prothromb Time International Ratio 1.1 (0.9-1.1) Activated Partial Thromboplast Time 31 SEC (23-33) Sodium Level 141 MMOL/L (136-145) Potassium Level 4.0 MMOL/L (3.5-5.1) Chloride Level 105 MMOL/L (98-107) Carbon Dioxide Level 33 MMOL/L (21-32) Anion Gap 4 mmol/L (5-15) Blood Urea Nitrogen 12 mg/dL (7-18) Creatinine 0.6 MG/DL (0.55-1.30) Estimat Glomerular Filtration Rate > 60 mL/min (>60) Glucose Level 76 MG/DL (74-106) Calcium Level 8.6 MG/DL (8.5-10.1) Total Bilirubin 0.4 MG/DL (0.2-1.0) Aspartate Amino Transf (AST/SGOT) 30 U/L (15-37) Alanine Aminotransferase (ALT/SGPT) 27 U/L (12-78) Alkaline Phosphatase 47 U/L (46-116) C-Reactive Protein, Quantitative 1.1 mg/dL (0.00-0.90) Total Protein 7.4 G/DL (6.4-8.2) Albumin 2.3 G/DL (3.4-5.0) Globulin 5.1 g/dL Albumin/Globulin Ratio 0.5 (1.0-2.7) Amylase Level 32 U/L (25-115) Lipase 51 U/L (73-393) Height (Feet): 6 Height (Inches): 3.00 Weight (Pounds): 268 Objective PE Vitals: reviewed, normal General: no apparent distress Neck: supple, thyroid normal Resp: lungs clear, no retraction, no accessory muscle use CV: regular rate, rhythm GI: non tender, soft MSK: Patient chronically debilitated however 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
[2019-07-05 16:00] VITALS: BP 120/84
--- NOTE | 2019-07-05 16:10 | Surgery Progress Note ---
Surgery Progress Note Subjective Additional Comments no acute events comfortable stable no complaints Objective Last 24 Hour Vital Signs Date Time Temp Pulse Resp B/P (MAP) Pulse Ox O2 Delivery O2 Flow Rate FiO2 07/05/19 09:50 136/87 07/05/19 09:00 Room Air 07/05/19 08:00 96.6 81 20 136/87 (103) 93 07/05/19 04:44 98.9 79 20 122/84 (97) 95 07/05/19 00:16 97.4 80 22 118/80 (93) 97 07/04/19 21:07 Room Air 07/04/19 20:00 97.8 83 23 115/82 (93) 97 I&O Intake and Output 07/04/19 07/05/19 19:00 07:00 Intake Total 720 ml Balance 720 ml Intake Oral 720 ml # Voids 4 Dressing: other Wound: other Drains: other Cardiovascular: RSR Respiratory: decreased breath sounds Abdomen: soft, present bowel sounds Extremities: edema, no cyanosis Plan Problems: (1) Weight loss Assessment & Plan: DAILY ESTIMATED NEEDS: Needs based on Pulmonary, obese, wound 97kg adj 20-25 kcals/kg 9830-3736 total kcals 1.25-1.5 g protein/kg 121-146 g total protein Fluid per MD, on lasix NUTRITION DIAGNOSIS: Unintentional weight loss r/t etiology unknown as evidenced by pt presents w/ 39# wt loss x1 month, 12-13% wt change, severe. CURRENT DIET:Regular PO DIET RECOMMENDATIONS: Low Na diet (texture per CONCRETE VIBRATOR OPERATOR or as tolerated) ADDITIONAL RECOMMENDATIONS: 1) Obtain weekly CALIBRATED weights as pt adm w/ 39# wt loss x1 mo 2) Closely monitor po intake Rec to Add SNACK in b.w meals Will monitor po intake, need for Ensure 3) On lasix, monitor lytes daily 4) F/up w/ WC eval: rec to add JOHNNA BID (2) Decubitus skin ulcer Assessment & Plan: Pt presented on admission with full thickness stage 3 wound with punched -out appearance L buttock(L)0.6cm x (W)0.5cm x (D)0.3cm. Periwound is erythematous and indurated. NO exudate noted. Pt verbalized area is tender when minimally palpated. Scrotum, Sacral area and R buttocks without erythema or evidence of skin breakdown. Both heels are firm and blanchable. Tx.Plan: Cleanse wound L buttocks with Saline. Apply Therahoney. Apply Moisture Barrier periwound. Cover with Optifoam Drsg every 3 days and prn. Apply Cavilon SKin Barrier to both heels. Cover each heel with Optifoam drsg. Change every 7 days and prn. Apply Moisture Barrier to Scrotum, Sacrum and R buttocks with each incontinence care. Reposition at least every 2 hours or as tolerated. Off-load heels with pillow. Marco Antonio Burns Jul 05, 2019 16:10
--- NOTE | 2019-07-05 22:16 | Psych Consult Progress Note ---
Psychiatry Progress Note Psychiatry Progress Note Allergies: Coded Allergies: ASPIRIN (Verified Allergy, Unknown, 06/30/19) Objective Data Height (Feet): 6 Height (Inches): 3.00 Weight (Pounds): 268 Assessment/Plan Status: progressing Thom Gordillo MD Jul 05, 2019 22:16
--- NOTE | 2019-07-05 23:09 | Pulmonology Progress Note ---
Assessment/Plan Assessment/Plan Pulmonary Progress Note HPI Patient admitted from nursing facility with weight loss, decreased appetite for a few weeks Denies any chest pain or shortness of breath denies any back or flank pain Denies any neck pain or photophobia denies any recent trauma Allergies: ASPIRIN Past Medical History: Organic Brain Syndrome, Seizures, Hypertension, Chronic Obstructive Pulmonary Disease, Left Upper Lobe Pulmonary Nodule, Seizures, Pressure wounds, UE Cellulitis, Hepatitis C, Thrombocytopenia All Other Systems: negative except mentioned in HPI Physical Exam Vital Signs Noted General Appearance: Patient appears morbidly obese, and is chronically debilitated, no apparent distress Head: normocephalic, atraumatic Eyes: bilateral eye PERRL, bilateral eye EOMI ENT: moist mm Neck: supple, thyroid normal Respiratory: lungs clear, no retraction, no accessory muscle use Cardiovascular: regular rate, HS1, HS2 RRR, rhythm Gastrointestinal: non tender, soft Musculoskeletal: other - Patient chronically debilitated however 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 to have 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 the 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 extremities Neurologic: alert, oriented x3 Skin: no rash Lymphatic: no adenopathy Impression: Dehydration on admission, improved Weight loss Chronic Obstructive Pulmonary Disease Left Upper Lobe Pulmonary Nodule on CXR Basal atelectasis Organic Brain Syndrome Seizures Hypertension Pressure woundsPrevious UE Cellulitis Hepatitis C Plan - O2 PRN - HHN - LE dupplex negative for DVT - PPX - Monitor labs - CT Chest - non contrast Labs Test 06/30/19 20:20 06/30/19 22:15 07/01/19 07:25 07/01/19 09:50 White Blood Count 6.4 K/UL (4.8-10.8) 6.5 K/UL (4.8-10.8) Red Blood Count 4.87 M/UL (4.70-6.10) 4.51 M/UL (4.70-6.10) Hemoglobin 14.7 G/DL (14.2-18.0) 13.6 G/DL (14.2-18.0) Hematocrit 42.9 % (42.0-52.0) 41.3 % (42.0-52.0) Mean Corpuscular Volume 88 FL (80-99) 92 FL (80-99) Mean Corpuscular Hemoglobin 30.2 PG (27.0-31.0) 30.2 PG (27.0-31.0) Mean Corpuscular Hemoglobin Concent 34.3 G/DL (32.0-36.0) 32.9 G/DL (32.0-36.0) Red Cell Distribution Width 12.8 % (11.6-14.8) 14.3 % (11.6-14.8) Platelet Count 158 K/UL (150-450) 148 K/UL (150-450) Mean Platelet Volume 7.4 FL (6.5-10.1) 8.3 FL (6.5-10.1) Neutrophils (%) (Auto) 64.5 % (45.0-75.0) 62.7 % (45.0-75.0) Lymphocytes (%) (Auto) 24.3 % (20.0-45.0) 21.2 % (20.0-45.0) Monocytes (%) (Auto) 9.1 % (1.0-10.0) 13.7 % (1.0-10.0) Eosinophils (%) (Auto) 0.1 % (0.0-3.0) 1.4 % (0.0-3.0) Basophils (%) (Auto) 2.0 % (0.0-2.0) 1.1 % (0.0-2.0) Sodium Level 141 MMOL/L (136-145) 140 MMOL/L (136-145) Potassium Level 4.7 MMOL/L (3.5-5.1) 3.9 MMOL/L (3.5-5.1) Chloride Level 104 MMOL/L (98-107) 105 MMOL/L (98-107) Carbon Dioxide Level 35 MMOL/L (21-32) 33 MMOL/L (21-32) Anion Gap 2 mmol/L (5-15) 2 mmol/L (5-15) Blood Urea Nitrogen 17 mg/dL (7-18) 16 mg/dL (7-18) Creatinine 0.8 MG/DL (0.55-1.30) 0.7 MG/DL (0.55-1.30) Estimat Glomerular Filtration Rate > 60 mL/min (>60) > 60 mL/min (>60) Glucose Level 88 MG/DL (74-106) 84 MG/DL (74-106) Calcium Level 8.8 MG/DL (8.5-10.1) 8.7 MG/DL (8.5-10.1) Total Bilirubin 0.5 MG/DL (0.2-1.0) 0.5 MG/DL (0.2-1.0) Aspartate Amino Transf (AST/SGOT) 31 U/L (15-37) 29 U/L (15-37) Alanine Aminotransferase (ALT/SGPT) 28 U/L (12-78) 27 U/L (12-78) Alkaline Phosphatase 63 U/L (46-116) 52 U/L (46-116) Total Creatine Kinase 18 U/L (26-308) Creatine Kinase MB 0.5 NG/ML (0.0-3.6) Creatine Kinase MB Relative Index 2.7 Troponin I 0.008 ng/mL (0.000-0.056) Pro-B-Type Natriuretic Peptide 327 pg/mL (0-125) Total Protein 8.4 G/DL (6.4-8.2) 7.6 G/DL (6.4-8.2) Albumin 2.7 G/DL (3.4-5.0) 2.4 G/DL (3.4-5.0) Globulin 5.7 g/dL 5.2 g/dL Albumin/Globulin Ratio 0.5 (1.0-2.7) 0.5 (1.0-2.7) Lipase 58 U/L (73-393) Urine Color Mar Urine Appearance Clear Urine pH 5 (4.5-8.0) Urine Specific [place] 1.020 (1.005-1.035) Urine Protein Negative (NEGATIVE) Urine Glucose (UA) Negative (NEGATIVE) Urine Ketones Negative (NEGATIVE) Urine Blood Negative (NEGATIVE) Urine Nitrite Negative (NEGATIVE) Urine Bilirubin Negative (NEGATIVE) Urine Ictotest Negative (NEGATIVE) Urine Urobilinogen 4 MG/DL (0.0-1.0) Urine Leukocyte Esterase Negative (NEGATIVE) HIV (1&2) Antibody Rapid Negative (NEGATIVE) EKG: Rate: normal Rhythm: NSR ST Segments: no acute changes Chest X-Ray: no consolidation, no effusion, no pneumothorax, no acute disease - Catheters visualized from both neck region, left upper lobe nodule, basal atelectasis LE Venous Dupplex: negative for DVT CT abdomen pelvis Limited exam without intravenous and oral contrast. Significant streak artifact from left hip prosthesis also limits evaluation through the pelvis. Subtle abnormalities in these regions can be missed. Within these limitations: * Bibasilar airspace opacities which may be related to atelectasis however correlation with clinical findings is recommended to exclude the possibility of consolidation or aspiration. * Prominent colonic stool burden suggesting constipation. * Chilaiditi sign. * Atypical hepatic morphology which may suggest early cirrhotic changes. Correlation with liver function tests and clinical history recommended. No discrete hepatic mass lesion identified however sensitivity is limited on noncontrast exam. Consider follow-up multiphase contrast-enhanced MRI or CT of the liver as clinically indicated. * Extensive superficial venous collaterals in the abdominal wall which may suggest SVC occlusion or stenosis. Correlate clinically. Additional findings as above. This report corresponds with the preliminary report. Seen earlier Subjective ROS Limited/Unobtainable: No Allergies: Coded Allergies: ASPIRIN (Verified Allergy, Unknown, 06/30/19) Objective Last 24 Hour Vital Signs Date Time Temp Pulse Resp B/P (MAP) Pulse Ox O2 Delivery O2 Flow Rate FiO2 07/05/19 16:00 97.3 73 19 120/84 (96) 97 07/05/19 12:00 98.3 105 18 165/79 (107) 98 07/05/19 09:50 136/87 07/05/19 09:00 Room Air 07/05/19 08:00 96.6 81 20 136/87 (103) 93 07/05/19 04:44 98.9 79 20 122/84 (97) 95 07/05/19 00:16 97.4 80 22 118/80 (93) 97 Intake and Output 07/04/19 07/05/19 19:00 07:00 Intake Total 720 ml Balance 720 ml Intake Oral 720 ml # Voids 4 Loyd Mahajan MD Jul 05, 2019 23:09
--- NOTE | 2019-07-08 09:39 | Discharge Summary ---
Discharge Summary Discharge Summary _ DATE OF ADMISSION: 06/30/2019 DATE OF DISCHARGE: 07/05/2019 DISCHARGED BY: Dr Rodriguez REASON FOR ADMISSION: 63 years old male, resident of senior living facility, with past medical history of COPD, seizure disorder, hypertension, DVT bilateral lower extremity, history of traumatic brain injury, was sent for evaluation due to decreased appetite and weight loss. Laboratory work-up revealed no leukocytosis , stable hemoglobin and hematocrit. Stable electrolytes and renal parameters. Stable LFT. Troponin negative . Pro BNP 327 . Albumin 2.7. Urinalysis revealed no evidence of urinary tract infection. EKG reveals sinus rhythm, no acute ischemic changes. Chest x-ray revealed atelectasis versus developing infectious infiltrate. 7 mm nodule right upper lung. CT of the abdomen and pelvis demonstrated bibasilar airspace opacities , which may be related to atelectasis Prominent colonic stool burden suggesting constipation. Chilaiditi sign. Atypical hepatic morphology which may suggest early cirrhotic changes. No discrete hepatic mass or lesion was identified . Patient subsequently admitted for further management. CONSULTANTS: pulmonary Dr. Mahajan executive chef/oncologist Dr. Mcneil surgery Dr. Burns psychiatrist [facility]: Patient admitted. Marine Engineer Cpvec followed. Supplemental oxygen provided and titrated to keep oximetry above 92%. Pulmonary toilet with bronchodilator provided as needed. No evidence of COPD exacerbation. Venous duplex bilateral lower extremity revealed no evidence of acute DVT. DVT prophylaxis provided. CT chest demonstrated 8 mm right upper lobe nodule with calcification , most likely benign. Short interval 6-12 month follow up with CT scan recommended if significant smoking history. Right apical subpleural blebs and left basilar bulla, indicating COPD changes. DVT prophylaxis provided. Oximetry was stable on room air prior to discharge. Surgeon followed for present on admission stage 3 left buttock decubitus ulcer. Wound care provided as per surgeon recommendation. Continue wound care at the facility. Calorie count implemented Protein supplements implemented in plan of care as per tension machine operator recommendation. Patient noted mild thrombocytopenia. Platelet count dropped to 125 prior to discharge. Per executive chef, thrombocytopenia was likely related to known history of hepatitis C as well as possibly early cirrhosis/based on atypical hepatic morphology. HIV test was nonreactive. Liver enzymes remained stable. Alpha-fetoprotein, CEA and CA-19-9 were all within normal limits. Seizure precaution maintained. Depakote continued. Bowel regimen instituted. Psychiatrist followed. Per psychiatrist, patient has dementia with behavioral disturbances and mood disorder by history. Patient started on Remeron. Dose of Depakote was down titrated. Reality orientation and supportive therapy provided. Fall precautions maintained. Patient was working with physical therapist. Patient clinically stabilized and was ready for transfer to senior living facility for continuation of care. FINAL DIAGNOSES: Dehydration Weight loss COPD Dementia with behavioral disturbances Organic brain syndrome Left upper lobe pulmonary nodule Basal atelectasis Seizure disorder Hypertension Hepatitis C Atypical hepatic morphology, possibly early cirrhotic changes/based on imaging Decubitus ulcer stage III left buttock, present on admission Thrombocytopenia DISCHARGE MEDICATIONS: See Medication Reconciliation list. DISCHARGE INSTRUCTIONS: Patient was discharged to the senior living facility as [facility]. Follow up with medical doctor at the facility. I have been assigned to dictate discharge summary for this account. I was not involved in the patient's management. Rosa Ryan NP Jul 08, 2019 09:39
== END 2019-07-05 17:20 | DRG 640 ==
LOC: EDBD 20:00 → EMR 21:19 → 4E 21:45 → EDBEDREQ 22:14 → 4E 23:36
DX: E86.0 Dehydration (principal); L89.323 Pressure ulcer of left buttock, stage 3; F03.91 Unspecified dementia, unspecified severity, with behavioral disturbance; J98.11 Atelectasis; R53.1 Weakness; Z88.6 Allergy status to analgesic agent; F09 Unspecified mental disorder due to known physiological condition; E78.5 Hyperlipidemia, unspecified; K21.9 Gastro-esophageal reflux disease without esophagitis; Z79.02 Long term (current) use of antithrombotics/antiplatelets; D69.6 Thrombocytopenia, unspecified; R63.4 Abnormal weight loss; G40.909 Epilepsy, unspecified, not intractable, without status epilepticus; F39 Unspecified mood [affective] disorder; R62.7 Adult failure to thrive; J44.9 Chronic obstructive pulmonary disease, unspecified; B19.20 Unspecified viral hepatitis C without hepatic coma; R91.1 Solitary pulmonary nodule; I10 Essential (primary) hypertension
CPT/HCPCS: 36415; 71045; 71250; 74176; 80053; 81003; 82105; 82150; 82378; 82550; 82553; 83690; 83880; 84484; 85025; 85610; 85651; 85730; 86140; 86703; 86705; 86709; 86803; 87040; 87081; 87340; 93005; 93970; 99285